=== PATIENT | male | born 1985 | race African-American/Black ===

== ENCOUNTER 2020-03-16 16:07 | Outpatient (REF) | payer OTHER, SELFPAY | END 2020-03-16 16:08 | disposition home or self-care (01) | LOC: HO.LAB 16:07 | PROVIDERS: Visit Provider Internal Medicine | DX: Z20.828 Contact with and (suspected) exposure to other viral communicable diseases (principal) | CPT/HCPCS: U0003 ==

== ENCOUNTER 2020-04-03 08:44 | Outpatient (REF) | payer OTHER, SELFPAY | END 2020-04-03 08:45 | disposition home or self-care (01) | LOC: HO.LAB 08:44 | PROVIDERS: Visit Provider Internal Medicine | DX: Z20.828 Contact with and (suspected) exposure to other viral communicable diseases (principal) | CPT/HCPCS: C9803; U0003 ==

== ENCOUNTER 2020-06-29 07:56 | Outpatient (REF) | payer OTHER, SELFPAY ==
[2020-06-29 10:24] LABS: MANUAL DIFF FLAG NO
[2020-06-29 10:39] LABS: Basophils Percent Auto 0.7 % (0-2); Eosinophils Absolute Auto 0.2 X10*3/uL (0.0-0.4); Eosinophils Percent Auto 3.8 % (0-4); Hemoglobin 14.5 g/dl (14.0-18.0); Imm Gran Abs Auto 0.04 X10*3/uL (0.00-0.03); Imm Gran Pct Auto 0.7 % (0.0-0.4); Lymphocytes Absolute Auto 2.4 X10*3/uL (1.2-4.9); Lymphocytes Percent Auto 39.6 % (20-40); Mean Corpuscular HGB Conc 31.5 g/dl (31.0-36.0); Mean Corpuscular Hemoglobin 28.5 pg (27.0-33.0); Mean Corpuscular Volume 90.6 fL (80-98); Monocytes Absolute Auto 0.7 X10*3/uL (0.1-1.2); Neutrophils Absolute Auto 2.7 X10*3/uL (2.0-8.3); Neutrophils Percent Auto 44.2 % (45-73); Platelet Count 193 X10*3/uL (160-400); Red Blood Count 5.08 X10*6/uL (4.60-5.80); Red Cell Distribution Width 12.8 % (11.0-16.0); White Blood Count 6.1 X10*3/uL (4.8-10.8)
[2020-06-29 10:41] LABS: Glucose Urine UA NEG (NEG); Leukocyte Esterase Urine NEG (NEG); Nitrite Urine NEG (NEG); PH 6.5 (5.0-8.0); Specific Gravity - Urine 1.025 (1.005-1.025); Urine Blood NEG (NEG); Urine Ketones NEG (NEG); Urine Protein NEG (NEG-TRACE)
[2020-06-29 10:45] LABS: Appearance Urine CLEAR; Color Urine YELLOW
[2020-06-29 11:16] LABS: Alanine Aminotransferase 29 U/L (0-40); Albumin Level 4.2 g/dL (3.5-5.0); Alkaline Phosphatase 65 U/L (39-117); Anion Gap 16 (12-20); Aspartate Amino Transferase 17 U/L (5-37); Bilirubin Total 0.8 mg/dL (0.0-1.0); Blood Urea Nitrogen 22 mg/dL (9-16); Calcium 9.3 mg/dL (8.4-10.2); Carbon Dioxide 27 mmol/L (22-29); Chloride 104 mmol/L (96-108); Cholesterol 185 mg/dL; Estimated Glomerular Filt Rate > 60; Glucose Fasting 107 mg/dL (60-99); HDL Cholesterol 46 mg/dL; LDL Cholesterol Calculated 127 mg/dl; Potassium 5.4 mmol/L (3.3-5.1); Sodium 142 mmol/L (135-145); Triglycerides 61 mg/dL
[2020-06-29 11:27] LABS: HIV AB/AG Nonreactive (Nonreactive); HIV Num 1 0.09 S/CO (0.00-0.99)
[2020-06-29 11:56] LABS: Syphilis Screen Nonreactive (Nonreactive)
[2020-07-01 14:07] LABS: C. trachomatis RNA TMA NOT DETECTED (NOT DETECTED); N. gonorrhoeae RNA TMA NOT DETECTED (NOT DETECTED)
== END 2020-06-29 07:57 | disposition home or self-care (01) ==
LOC: HO.10HDL 07:56
PROVIDERS: Visit Provider Internal Medicine
DX: Z13.89 Encounter for screening for other disorder (principal)
CPT/HCPCS: 36415; 80053; 80061; 81003; 85025; 86780; 87389; 87491; 87591

== ENCOUNTER 2020-09-10 10:29 | Outpatient (REF) | payer OTHER, SELFPAY ==
[2020-09-10 11:06] LABS: COVID-19 Test Negative (Negative); IDNOW Serial# 55D5AD1C
== END 2020-09-10 10:30 | disposition home or self-care (01) ==
LOC: HO.LAB 10:29
PROVIDERS: Visit Provider Internal Medicine
DX: Z20.822 Contact with and (suspected) exposure to COVID-19 (principal)
CPT/HCPCS: 36415; 87635; C9803

== ENCOUNTER 2020-09-13 07:31 | Outpatient (REF) | payer OTHER, SELFPAY ==
[2020-09-13 08:17] LABS: COVID-19 Test Negative (Negative)
== END 2020-09-13 07:32 | disposition home or self-care (01) ==
LOC: HO.LAB 07:31
PROVIDERS: Visit Provider Internal Medicine
DX: Z20.822 Contact with and (suspected) exposure to COVID-19 (principal)
CPT/HCPCS: 36415; 87635; C9803

== ENCOUNTER 2020-09-17 07:57 | Outpatient (REF) | payer OTHER, SELFPAY ==
[2020-09-17 08:15] LABS: COVID-19 Test Negative (Negative)
== END 2020-09-17 07:58 | disposition home or self-care (01) ==
LOC: HO.LAB 07:57
PROVIDERS: Visit Provider Internal Medicine
DX: Z20.822 Contact with and (suspected) exposure to COVID-19 (principal)
CPT/HCPCS: 36415; 87635; C9803

== ENCOUNTER 2021-09-03 06:06 | Outpatient (REF) | payer OTHER, SELFPAY ==
[2021-09-03 07:55] LABS: Estimated Average Glucose 105 mg/dL; Hemoglobin A1c % 5.3 %
[2021-09-03 07:59] LABS: Alanine Aminotransferase 34 U/L (0-40); Albumin Level 4.3 g/dL (3.5-5.0); Alkaline Phosphatase 66 U/L (39-117); Anion Gap 14 (12-20); Aspartate Amino Transferase 23 U/L (5-37); Bilirubin Total 1.1 mg/dL (0.0-1.0); Blood Urea Nitrogen 19 mg/dL (9-16); C Reactive Protein 0.74 mg/dL (< or = 0.50); Calcium 9.9 mg/dL (8.4-10.2); Carbon Dioxide 28 mmol/L (22-29); Chloride 102 mmol/L (96-108); Cholesterol 209 mg/dL; Estimated Glomerular Filt Rate > 60; Glucose Fasting 96 mg/dL (60-99); HDL Cholesterol 45 mg/dL; LDL Cholesterol Calculated 137 mg/dl; Potassium 4.9 mmol/L (3.3-5.1); Sodium 139 mmol/L (135-145); Total Protein 7.3 g/dL (6.5-8.0); Triglycerides 138 mg/dL
[2021-09-03 08:24] LABS: Free T4 (Free Thyroxine) 0.92 ng/dL (0.71-1.85); Thyroid Stimulating Hormone 1.09 uIU/mL (0.32-4.0)
== END 2021-09-03 06:07 | disposition home or self-care (01) ==
LOC: HO.LAB 06:06
PROVIDERS: PCP Internal Medicine; Visit Provider Internal Medicine
DX: Z00.00 Encounter for general adult medical examination without abnormal findings (principal); R51.9 Headache, unspecified; R63.5 Abnormal weight gain; R73.03 Prediabetes
CPT/HCPCS: 36415; 80053; 80061; 83036; 84439; 84443; 86140

== ENCOUNTER 2022-09-17 09:37 | Outpatient (REF) | payer OTHER, SELFPAY ==
[2022-09-17 13:39] LABS: MANUAL DIFF FLAG NO
[2022-09-17 13:49] LABS: Basophils Absolute Auto 0.1 X10*3/uL (0.0-0.2); Basophils Percent Auto 0.8 % (0-2); Eosinophils Absolute Auto 0.4 X10*3/uL (0.0-0.4); Eosinophils Percent Auto 4.8 % (0-4); Hematocrit 46.7 % (42.0-52.0); Hemoglobin 15.5 g/dl (14.0-18.0); Imm Gran Abs Auto 0.02 X10*3/uL (0.00-0.03); Imm Gran Pct Auto 0.3 % (0.0-0.4); Lymphocytes Absolute Auto 2.3 X10*3/uL (1.2-4.9); Lymphocytes Percent Auto 31.3 % (20-40); Mean Corpuscular HGB Conc 33.2 g/dl (31.0-36.0); Mean Corpuscular Hemoglobin 29.4 pg (27.0-33.0); Mean Corpuscular Volume 88.4 fL (80.0-98.0); Mean Platelet Volume 12.4 fL (9.4-12.4); Monocytes Absolute Auto 0.9 X10*3/uL (0.1-1.2); Monocytes Percent Auto 12.9 % (2-11); Neutrophils Absolute Auto 3.6 x10*3/uL (2.0-8.3); Neutrophils Percent Auto 49.9 % (45-73); Platelet Count 236 X10*3/uL (160-400); Red Blood Count 5.28 X10*6/uL (4.60-5.80); Red Cell Distribution Width 12.8 % (11.0-16.0); White Blood Count 7.2 X10*3/uL (4.8-10.8)
[2022-09-17 14:20] LABS: Alanine Aminotransferase 54 U/L (0-40); Albumin Level 4.4 g/dL (3.5-5.0); Alkaline Phosphatase 71 U/L (39-117); Anion Gap 12 (12-20); Aspartate Amino Transferase 26 U/L (5-37); Bilirubin Total 1.2 mg/dL (0.0-1.0); Blood Urea Nitrogen 13 mg/dL (9-16); Calcium 9.8 mg/dL (8.4-10.2); Carbon Dioxide 30 mmol/L (22-29); Chloride 103 mmol/L (96-108); Cholesterol 211 mg/dL; Estimated Glomerular Filt Rate > 60; Glucose Fasting 90 mg/dL (60-99); HDL Cholesterol 46 mg/dL; LDL Cholesterol Calculated 149 mg/dl; Potassium 5.4 mmol/L (3.3-5.1); Sodium 140 mmol/L (135-145); Total Protein 7.1 g/dL (6.5-8.0); Triglycerides 84 mg/dL
[2022-09-17 14:37] LABS: Thyroid Stimulating Hormone 0.77 uIU/mL (0.32-4.0)
== END 2022-09-17 09:38 | disposition home or self-care (01) ==
LOC: HO.10HDL 09:37
PROVIDERS: Visit Provider Internal Medicine
DX: Z00.00 Encounter for general adult medical examination without abnormal findings (principal); E66.9 Obesity, unspecified
CPT/HCPCS: 36415; 80053; 80061; 84443; 85025

== ENCOUNTER → 2023-01-14 07:48 | Outpatient (BNVA) | payer OTHER, SELFPAY | PROVIDERS: PCP Internal Medicine; Visit Provider Physician Assistant Surgical ==

== ENCOUNTER 2023-02-02 08:46 | Outpatient (AMB) | payer OTHER, SELFPAY ==
--- NOTE | 2023-02-02 14:19 | A.OFFVIS_ITS ---
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 HPI Details Start time: 2.15pm, End time: 2.48pm ?I spent 28 minutes speaking with the patient on the phone plus an additional 5 minutes reviewing and updating records for a total of 33 minutes HPI Comments History of Present Illness Details Previous weight loss efforts: intermittent fasting, low car diet, exercise, calorie counting Wakes up: 4.30am, Sleeps: 9pm Breakfast: skips Lunch: 12pm (kazakh food, pizza, chicken with vegetables) Dinner: 6.30pm (rice, vegetables, chicken) Snacks: cereal at 8pm Exercise: walking outside Fluids: Coffee: none, tea: none, soda: none, juice: 1-2 glasses per day (orange or cranberry), ETOH: 1-2/year [facility] Medical History (Updated 02/02/23 @ 14:21 by Simone Oliver MD) Morbid obesity Surgical History (Updated 02/02/23 @ 08:28 by Caitlin Mora CMA) History of eye surgery Hx of appendectomy Family History (Updated 02/02/23 @ 08:29 by Caitlin Mora CMA) Mother Hypertension Father Hypertension Son No problems noted. Son Asthma Daughter Asthma Social History (Updated 02/02/23 @ 08:27 by Caitlin Mora CMA) Alcohol intake: current Alcohol intake frequency: other Patient Tobacco Use Status: Never used Tobacco Assessment & Plan Assessment & Plan (1) Morbid obesity: Code(s): E66.01 - Morbid (severe) obesity due to excess calories Plan: 1.? Plan for lap sleeve gastrectomy. If diaphragmatic or ventral hernias are present at time of surgery, these will be repaired laparoscopically as well. Risks and complications were discussed in detail including possible conversion to an open procedure, anastomotic leak, bleeding requiring transfusion, small bowel obstruction, , DVT and pulmonary embolism, cardiac, or pulmonary complications, as mcc complications such as anastomotic ulcer, insufficient weight loss and vitamin deficiencies. I emphasized the importance of close follow-up, adherence to instructions and good communication. 2. Nutritional counseling. Start with 2 Isopure protein (buy at [employer] or [employer]) shakes (ONE scoop in 8oz water each) at 5am-7am and 9am-11am, 2 protein bar (Zone Perfect protein bars, buy at [employer] ?[employer], [employer], or [employer]) at 12pm-2pm and 3pm-5pm, dinner at 6pm (12 forks of protein and 12 forks of salad/vegetables). If hungry, please do another HALF Zone Perfect bar at 8pm- 9pm. Meal to include lean meat (beef, fish, pork, turkey, chicken), or kazakh yogurt, or egg whites, or beans with a salad with olive oil and fruits (berries, pears, apples, kiwi). Avoid salt, breads, potatoes, rice, pasta, desserts. 3. Each shake would be drunk slowly, like coffee in a period of 2 hours. 4. Cut each bar in 4 pieces and eat each piece in 30min ?to make each bar last 2 hours. 5. I emphasized the importance of measuring accurately the food portion and measure it when serving the food in plate 6. The meal portions include 12 full-size forks of meat and 12 full-size forks of salad. You always eat the meat portion but you can replace up to 6 forks for salad/vegetables with rice, potatoes or pasta, or a fruit ?if you like. The less you do it the better weight loss will be. 7. One full-size fork is what it can be scooped on the fork without falling aside and not what can be bit with the fork. Use regular forks like those you find in a typical restaurant. 8.? Please send me weight measurements as soon as possible and then once a week. Always include your diet and exercise plan. 9. Start walking outside daily, tracking calories with a goal of 300 calories per day, daily. Goal is to burn 2000 calories per week on exercise, which means either 300 calories daily, or 400 calories 5 days per week, or 500 calories 4 days per week, or 650 calories 3 days per week. 10. Alternatively purchase a stationary bike, elliptical or treadmill at home that can track calories. Let me know if you do so I can give you an exercise plan. 11.?Goal is to lose at least 1.5-2lbs per week 12. Goal to lose 10% of your weight before surgery, which is about 32lbs. Ultimate weight goal: 292lbs before surgery 13. Please follow the diet plan exactly without any change. If you don't like something about the plan or you feel hungry you need to communicate with me so I can help you revise the plan. You should not change the plan yourself. Orders: Orders IRON PROFILE Today E66.01 - Morbid (severe) obesity due to excess calories Comprehensive Met. Panel Today E66.01 - Morbid (severe) obesity due to excess calories Vitamin B1 Today E66.01 - Morbid (severe) obesity due to excess calories Vitamin A Today E66.01 - Morbid (severe) obesity due to excess calories C Reactive Protein Today E66.01 - Morbid (severe) obesity due to excess calories Ferritin Today E66.01 - Morbid (severe) obesity due to excess calories US abdomen comp w elastography Today E66.01 - Morbid (severe) obesity due to excess calories XR chest 2V Today E66.01 - Morbid (severe) obesity due to excess calories ECG 12 lead EKG Today E66.01 - Morbid (severe) obesity due to excess calories Insulin Today E66.01 - Morbid (severe) obesity due to excess calories Lipid Panel Today E66.01 - Morbid (severe) obesity due to excess calories Complete Blood Count Auto Diff Today E66.01 - Morbid (severe) obesity due to excess calories Vitamin B12 and Folate Today E66.01 - Morbid (severe) obesity due to excess calories Zinc Today E66.01 - Morbid (severe) obesity due to excess calories PTHI Today E66.01 - Morbid (severe) obesity due to excess calories TSH reflex Free T4 Today E66.01 - Morbid (severe) obesity due to excess calories H Pylori Breath Test Today E66.01 - Morbid (severe) obesity due to excess calories Vitamin D 25-OH Total Today E66.01 - Morbid (severe) obesity due to excess calories Hemoglobin A1c Today E66.01 - Morbid (severe) obesity due to excess calories FL upper GI w air Today E66.01 - Morbid (severe) obesity due to excess calories Referrals Behavioral Health Referral E66.01 - Morbid (severe) obesity due to excess calories Nutrition/Dietitian Referral E66.01 - Morbid (severe) obesity due to excess calories Telehealth Telehealth Location of provider rendering services: practice address Location of patient: address on file Patient Identification confirmed using: Name, : Yes Telehealth method: voice only Patient verbally consented to treatment: Yes Patient verbally consented to billing insurance company: Yes Patient informed of any privacy concerns related to visit: Yes Coding Level of Care Code Tele New Pt Level 3 (92833) Diagnoses Morbid obesity E66.01 Time Spent (min) 33
[2023-02-02 14:26] VITALS: BMI 43.9
== END 2023-02-02 14:49 | disposition home or self-care (01) ==
LOC: HO.HBS 08:46
PROVIDERS: PCP Internal Medicine; Visit Provider Surgery
DX: E66.01 Morbid (severe) obesity due to excess calories (principal); Z68.41 Body mass index [BMI] 40.0-44.9, adult
CPT/HCPCS: 99204

== ENCOUNTER → 2023-02-02 08:46 | Outpatient (BNVA) | payer OTHER, SELFPAY | PROVIDERS: PCP Internal Medicine; Visit Provider Surgery ==

== ENCOUNTER 2023-02-11 07:18 | Outpatient (REF) | payer OTHER, SELFPAY ==
--- NOTE | ~2023-02-11 | XR_ITS ---
EXAMINATION: XR CHEST CLINICAL INFORMATION: Morbid obesity COMPARISON: None available. TECHNIQUE: 2 views of the chest were obtained. FINDINGS: No significant abnormality is noted involving the heart, lungs, mediastinum, bony thorax or soft tissues. XR/XR chest 2V IMPRESSION: Unremarkable examination.
[2023-02-11 07:39] LABS: MANUAL DIFF FLAG NO
--- NOTE | 2023-02-11 07:43 | ECG_ITS ---
Test Reason : e66.01 Blood Pressure : / mmHG Vent. Rate : 064 BPM Atrial Rate : 064 BPM P-R Int : 190 ms QRS Dur : 094 ms QT Int : 394 ms P-R-T Axes : 033 060 -04 degrees QTc Int : 406 ms Normal sinus rhythm Abnormal QRS-T angle, consider primary T wave abnormality Abnormal ECG No previous ECGs available Referred By: Simone Oliver Electronically Signed By:ROSE SPENCER
[2023-02-11 08:48] LABS: Basophils Absolute Auto 0.1 X10*3/uL (0.0-0.2); Basophils Percent Auto 0.6 % (0-2); Eosinophils Absolute Auto 0.5 X10*3/uL (0.0-0.4); Hematocrit 45.8 % (42.0-52.0); Hemoglobin 15.2 g/dl (14.0-18.0); Imm Gran Abs Auto 0.03 X10*3/uL (0.00-0.03); Imm Gran Pct Auto 0.4 % (0.0-0.4); Lymphocytes Absolute Auto 2.7 X10*3/uL (1.2-4.9); Lymphocytes Percent Auto 33.8 % (20-40); Mean Corpuscular HGB Conc 33.2 g/dl (31.0-36.0); Mean Corpuscular Hemoglobin 28.7 pg (27.0-33.0); Mean Corpuscular Volume 86.4 fL (80.0-98.0); Monocytes Percent Auto 12.8 % (2-11); Neutrophils Absolute Auto 3.8 x10*3/uL (2.0-8.3); Neutrophils Percent Auto 46.4 % (45-73); Platelet Count 217 X10*3/uL (160-400); Red Cell Distribution Width 13.1 % (11.0-16.0); White Blood Count 8.1 X10*3/uL (4.8-10.8)
[2023-02-11 09:21] LABS: Alanine Aminotransferase 68 U/L (0-40); Albumin Level 4.4 g/dL (3.5-5.0); Alkaline Phosphatase 68 U/L (39-117); Anion Gap 15 (12-20); Aspartate Amino Transferase 39 U/L (5-37); Bilirubin Total 0.9 mg/dL (0.0-1.0); Blood Urea Nitrogen 18 mg/dL (9-16); Calcium 9.6 mg/dL (8.4-10.2); Carbon Dioxide 28 mmol/L (22-29); Chloride 102 mmol/L (96-108); Cholesterol 183 mg/dL (<200); Estimated Glomerular Filt Rate > 60; Glucose Random 105 mg/dL (60-115); HDL Cholesterol 37 mg/dL (>40); Iron 60 mcg/dL (45-160); LDL Cholesterol Calculated 130 mg/dL (<100); Percent Iron Saturation 27 % (15-50); Potassium 3.9 mmol/L (3.3-5.1); Sodium 141 mmol/L (135-145); Total Iron Binding Capacity 220 mcg/dL (228-428); Total Protein 7.5 g/dL (6.5-8.0); Triglycerides 83 mg/dL (<150); Unsaturated Iron Binding 160 ug/dL
[2023-02-11 09:37] LABS: Ferritin 168 ng/mL (20-250); Insulin 11 uU/mL (2-29); TSH reflex Free T4 0.54 uIU/mL (0.32-4.0); Vitamin D 25-OH Total 22.1 ng/mL (>30)
[2023-02-11 09:45] LABS: Folate 11.9 ng/mL (> or = 4.0); Vitamin B12 962 pg/mL (200-900)
[2023-02-11 12:00] LABS: Estimated Average Glucose 103 mg/dL; Hemoglobin A1c % 5.2 % (<6.0)
[2023-02-12 14:35] LABS: H Pylori Breath Test Positive (Negative)
[2023-02-12 16:19] LABS: Calcium (PTHI) 9.5 mg/dL (8.6-10.3); PTHI 54 pg/mL (16-77)
[2023-02-14 22:48] LABS: Zinc 77 mcg/dL (60-130)
[2023-02-15 14:54] LABS: Vitamin B1 11 nmol/L (8-30)
[2023-02-17 04:58] LABS: Vitamin A 39 mcg/dL (38-98)
== END 2023-02-11 07:19 | disposition home or self-care (01) ==
LOC: HO.XRAY 07:18
PROVIDERS: PCP Internal Medicine; Visit Provider Surgery
DX: E66.01 Morbid (severe) obesity due to excess calories (principal)
CPT/HCPCS: 71046; 80053; 80061; 82306; 82607; 82728; 82746; 83013; 83036; 83525; 83540; 83970; 84425; 84443; 84590; 84630; 85025; 86140; 93005

== ENCOUNTER 2023-03-02 08:02 | Outpatient (AMB) | payer OTHER, SELFPAY ==
--- NOTE | 2023-03-02 10:41 | MHC.OFFVISWM ---
Intake VS Expanded 03/02/23 14:14 Height 6 ft Weight 318 lb 1 oz BMI 43.1 Body Fat % 45 Body Fat Mass 143.1 Fat Free Mass 175 Visceral Fat Rating 24 Body Water % 39.6 Body Water Mass 125.9 Basal Metabolic Rate/Score 2,500 Intake Visit Reasons: TV Follow Up SWL - 1ST Allergies Penicillins Allergy (Mild, Verified 02/02/23 14:19) Rash HPI TV Follow Up SWL - 1ST HPI Details Start time: 10.00am, End time: 11am ?I spent 25 minutes speaking with the patient on the phone plus an additional 5 minutes reviewing and updating records for a total of 30 minutes HPI Comments History of Present Illness Details Overall weight loss: 5.9lbs, or 1.82% TBWL Is doing two Isopure protein shakes (1 scoop each in water), 2 Zone Perfect protein bars and one meal (12 forks of protein and 12 forks of salad or vegetables) Exercise: Elliptical for 700 calories or treadmill for 900 calories PFSH Medical History (Updated 02/20/23 @ 20:21 by Simone Oliver MD) Morbid obesity Surgical History (Updated 02/02/23 @ 08:28 by Caitlin Mora CMA) History of eye surgery Hx of appendectomy Family History (Updated 02/02/23 @ 08:29 by Caitlin Mora CMA) Mother Hypertension Father Hypertension Son No problems noted. Son Asthma Daughter Asthma Social History (Updated 02/02/23 @ 08:27 by Caitlin Mora CMA) Alcohol intake: current Alcohol intake frequency: other Patient Tobacco Use Status: Never used Tobacco Assessment & Plan Assessment & Plan (1) Morbid obesity: Code(s): E66.01 - Morbid (severe) obesity due to excess calories Plan: 1. Continue same nutritional plan of two Isopure protein shakes (1 scoop each in water), 2 Zone Perfect protein bars and one meal (12 forks of protein and 12 forks of salad or vegetables) 2. Exercise: start treadmill with an incline of 2.0 and speed of 3.5. Increase incline by 1 every 3 min to a max incline of 8.0, stay 3min at 8.0 and then return to 2.0 and repeat same steps until calorie goal is met. Goal is to burn 2000 calories per week on exercise, which means either 300 calories daily, or 400 calories 5 days per week, or 500 calories 4 days per week, or 650 calories 3 days per week. 3. Continue to send me weight measurements weekly on Tuesdays Telehealth Telehealth Location of provider rendering services: practice address Location of patient: address on file Patient Identification confirmed using: Name, : Yes Telehealth method: voice only Patient verbally consented to treatment: Yes Patient verbally consented to billing insurance company: Yes Patient informed of any privacy concerns related to visit: Yes Minutes spent on Phone/Video with Pt.: 30 Coding Level of Care Code Tele Est Pt Level 4 (00714) Diagnoses Morbid obesity E66.01 Time Spent (min) 30
[2023-03-02 14:14] VITALS: BMI 43.1
== END 2023-03-02 14:21 | disposition home or self-care (01) ==
LOC: HO.HBS 08:02
PROVIDERS: PCP Internal Medicine; Visit Provider Surgery
DX: E66.01 Morbid (severe) obesity due to excess calories (principal); Z68.41 Body mass index [BMI] 40.0-44.9, adult
CPT/HCPCS: 99214

== ENCOUNTER → 2023-03-02 08:02 | Outpatient (BNVA) | payer OTHER, SELFPAY | PROVIDERS: PCP Internal Medicine; Visit Provider Surgery ==

== ENCOUNTER 2023-03-03 13:11 | Outpatient (AMB) | payer OTHER, SELFPAY ==
--- NOTE | 2023-03-03 12:38 | A.OFFWM_ITS ---
Intake Intake Visit Reasons: VIDEO BH Intake Allergies Penicillins Allergy (Mild, Verified 02/02/23 14:19) Rash [facility] Medical History (Updated 03/03/23 @ 12:59 by Fátima Ching) Morbid obesity Surgical History (Updated 02/02/23 @ 08:28 by Caitlin Mora CMA) History of eye surgery Hx of appendectomy Family History (Updated 02/02/23 @ 08:29 by Caitlin Mora CMA) Mother Hypertension Father Hypertension Son No problems noted. Son Asthma Daughter Asthma Social History (Updated 02/02/23 @ 08:27 by Caitlin Mora CMA) Alcohol intake: current Alcohol intake frequency: other Patient Tobacco Use Status: Never used Tobacco Behavioral Health Assessment Weight Management Therapy Therapy Notes Details Pt is looking to have weight loss surgery to help improve his health and quality of life. He reported past outpatient therapy when he was in the and also through his job [employer] due to . He denied any history of problems with drugs or alcohol, or previous inpatient psychiatric admissions. Presenting Concerns Referral Source provider Reason for referral weight loss surgery evaluation Precipitating Event obesity Living Situation Current Living Situation Own At risk of losing current housing? No Satisfied with current living situation? Yes Comments Patient lives with his and three children ages 21, 15, and 12, and his father in law. Food/Weight/Diet Expectations of change weight loss and maintenance History/Relationship with food He reported that he would cope with stress by eating food. Over the last few years he has worked on improving that. He realized after the he was using food to cope and started to learn from that. Pt stated that he would snack and munch at night, eat cereal, drink juice, large amounts, hot pockets, chips, left over pizza at night. He would skip meals during the day and then over eat at night. 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 In the last 13 years he has struggled with his weight. History/Relationship with dieting IF, low carb, calorie counting Binge Eating Do you frequently eat large amounts of food in short periods of time, not feeling physically hungry? Yes Do you feel out of control when you eat a large amount of food in a short period of time? No Do you eat large amounts of food rapidly and typically alone? Yes Night Eating Do you wake up at least once during the night to eat? No If you wake up in the night, do you find that it is necessary to eat something in order to fall back asleep? No Do you have little or no appetite in the morning and feel very hungry in the evening, often overeating between dinner and when you go to bed? 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 His is source of support. Cultural/Ethnic information Legal Involvement and History Current or historical involvement with the legal system? none Education Highest grade completed college Preferred learning style Auditory, Verbal, Written, Learn by doing and Visual Currently enrolled in educational program? No Interested in further educational program? 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 No Financial Situation Describe current financial situation Comfortable Financial assistance? None Service Service? Yes Mental Health and Addiction Treatment Current/Past substance abuse? No Current/Past addictive behavior concerns? No Medical and Physical Health Summary Physical exam in the last year? Yes Pain Screening Current pain? No Pain in the last few months? No Medications Is the patient compliant with medications? Yes Does the patient have Guzman Guardian in place? Not applicable Does the patient use complimentary health approaches? No Trauma/Abuse History History of trauma? Yes Questionnaires PHQ-9 Over the last 2 weeks, how often have you been bothered by any of the following problems? 1. Little interest or pleasure in doing things: several days 2. Feeling down, depressed, or hopeless: not at all 3. Trouble falling or staying asleep, or sleeping too much: not at all 4. Feeling tired or having little energy: several days 5. Poor appetite or overeating: more than half the days 6. Feeling bad about yourself - or that you are a failure or have let yourself or your family down: not at all 7. Trouble concentrating on things, such as reading the newspaper or watching television: not at all 8. Moving or speaking so slowly that other people could have noticed. Or the opposite - being so fidgety or restless that you have been moving around a lot more than usual: not at all 9. Thoughts that you would be better off or of hurting yourself in some way: not at all Total score: 4 Depression Screening Interpretation: Negative Depression Screening Done: Yes Source: Developed by Drs. Rayshawn Kwan, Brenda Proctor, Charles Rodriguez and colleagues, with an educational nicolás from [employer]. Binge Eating Scale Group 1 A. I don't feel self-conscious about my wt. or body size when I'm with others. B. I feel concerned about how I look to others, but it normally does not make me fell disappointed with myself C. I do get self-conscious about my appearance and wt. which makes me feel disappointed in myself. D. I feel very self-conscious about my wt. and frequently I feel intense shame and disgust for myself. I try to avoid social contacts because of my self- consciousness. Response Group 1: B Group 2 A. I don't have any difficulty eating slowly in the proper manner. B. Although I seem to gobble down foods, I don't end up feeling stuffed because of eating to much. C. At times, I tend to eat quickly and then, I feel uncomfortably full afterwards. D. I have the habit of bolting down my food, without really chewing it. When this happens I usually feel uncomfortably stuffed because I've eaten to much. Response Group 2: C Group 3 A. I feel capable to control my eating urges when I want to. B. I feel like I have failed to control my eating more than the average person. C. I feel utterly helpless when it comes to feeling in control of my eating urges. D. Because I feel so helpless about controlling my eating I have become very desperate about trying to get control. Response Group 3: B Group 4 A. I don't have the habit of eating when I'm bored. B. I sometimes eat when I'm bored, but often I'm able to get busy and get my mind off food. C. I have a regular habit of eating when I'm bored, but occasionally, I can use some other activity to get my mind off eating. D. I have a strong habit of eating when I'm bored. Nothing seems to help me breath the habit. Response Group 4: A Group 5 A. I'm usually physically hungry when I eat something. B. Occasionally, I eat something on impulse even though I really am not hungry. C. I have the regular habit of eating foods, that I might not really enjoy, to satisfy a hungry feeling even though physically, I don't need the food. D. Although I'm not physically hungry, I get a hungry feeling in my mouth that only seems to be satisfied when I eat a food, like sandwich, that fills my mo uth. Sometimes, when I eat the food to satisfy my mouth hunger, I then spit the food out so I won't gain weight. Response Group 5: B Group 6 A. I don't feel any guilt or self-hate after I overeat. B. After I overeat, occasionally I feel guilt or self-hate. C. Almost all the time I experience strong guilt or self-hate after I overeat. Response Group 6: B Group 7 A. I don't lose total control of my eating when dieting even after periods when I overeat. B. Sometimes when I eat a forbidden food on a diet, I feel like I blew it and eat even more. C. Frequently, I have the habit of saying to myself, I've blown it now, why not go all the way, when I overeat on a diet. When that happens I eat more. D. I have a regular habit of starting a strict diets for myself but I break the diets by going on an eating binge. My life seems to be either a feast or famine. Response Group 7: A Group 8 A. I rarely eat so much food that I feel uncomfortably stuffed afterwards. B. Usually about once a month, I each such a quantity of food, I end up feeling very stuffed. C. I have regular periods during the month when I eat large amounts of food, either at mealtime or at snacks. D. I eat so much food that I regularly feel quite uncomfortable after eating and sometimes a bit nauseous. Response Group 8: B Group 9 A. My level of calorie intake does not go up very high or go down very low on a regular basis. B. Sometimes after I overeat, I will try to reduce my caloric intake to almost nothing to compensate for the excess calories I've eaten. C. I have a regular habit of overeating during the night. It seems that my routine is not to be hungry in the morning but overeat in the evening. D. In my adult years, I have had week-long periods where I practically starve myself. This follows periods when I overeat. It seems I live a life of either feast or famine. Response Group 9: C Group 10 A. I usually am able to stop eating when I want to. I know when enough is enough. B. Every so often, I experience a compulsion to eat which I can't seem to control. C. Frequently, I experience strong urges to eat which I seem unable to control, but at other times I can control my eating urges. D. I feel incapable of controlling urges to eat. I have a fear of not being able to stop eating voluntarily. Response Group 10: B Group 11 A. I don't have any problem stopping eating when I feel full. B. I usually can stop eating when I feel full but occasionally overeat leaving me feeling uncomfortably stuffed. C. I have a problem stopping eating once I start and usually I feel uncomfortably stuffed after I eat a meal. D. Because I have a problem not being able to stop eating when I want, I sometimes have to induce vomiting to relieve my stuffed feeling. Response Group 11: B Group 12 A. I seem to eat just as much when I'm with others, Family social gatherings as when I'm by myself. B. Sometimes, when I'm with other persons, I don't eat as much as I want to eat because I'm self-conscious about my eating. C. Frequently, I eat only a small amount of food when others are present, because I'm very embarrassed about my eating. D. I feel so ashamed about overeating that I pick times to overeat when I know no one will see me. I feel like a closet eater. Response Group 12: B Group 13 A. I eat three meals a day with only an occasional between meal snack. B. I eat 3 meals a day, but I also normally snack between meals. C. When I am snacking heavily, I get in the habit of skipping regular meals. D. There are regular periods when I seem to be continually eating, with no planned meals. Response Group 13: C Group 14 A. I don't think much about trying to control unwanted eating urges. B. At least some of the time, I feel my thoughts are pre-occupied with trying to control my eating urges. C. I feel that frequently I spend much time thinking about how much I ate or about trying not to eat anymore. D. It seems to me that most of my waking hours are pre-occupied by thoughts about eating or not eating. I feel like I'm constantly struggling not to eat. Response Group 14: B Group 15 A. I don't think about food a great deal. B. I have strong craving for food but they last only for brief periods of time. C. I have days when I can't seem to think about anything else but food. D. Most of my days seem to be pre-occupied with thoughts about food. I feel like I live to eat. Response Group 15: A Group 16 A. I usually know whether or not I'm physically hungry. I take the right portion of food to satisfy me. B. Occasionally, I feel uncertain about knowing whether or not I'm physically hungry. A these times it's hard to know how much food I should take to satisfy me. C. Even though I might know how many calories I should eat, I don't have any idea what is a normal amount of food for me. Response Group 16: B Binge Eating Score: 16 Score less than 17 Minimal Risk Score between 18-26 Moderate Risk Score between 27-46 High Risk Assessment & Plan Assessment & Plan (1) Binge-eating disorder, in partial remission, mild: Code(s): F50.81 - Binge eating disorder (2) Morbid obesity: Code(s): E66.01 - Morbid (severe) obesity due to excess calories Plan Patient reported doing well. 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 He is cleared for surgery. Telehealth Telehealth Location of provider rendering services: other Location of patient: other Patient Identification confirmed using: Name, : Yes Telehealth method: voice only Patient verbally consented to treatment: Yes Patient verbally consented to billing insurance company: Yes Patient informed of any privacy concerns related to visit: Yes Minutes spent on Phone/Video with Pt.: 45 Coding Level of Care Code Tele Psy Diag Eval (44111) Diagnoses Binge-eating disorder, in partial remission, mild F50.81 Morbid obesity E66.01 Time Spent (min) 45
== END 2023-03-03 16:11 | disposition home or self-care (01) ==
LOC: HO.HBST 13:11
PROVIDERS: PCP Internal Medicine; Visit Provider Counselor Mental Health
DX: F50.81 Binge eating disorder (principal); E66.01 Morbid (severe) obesity due to excess calories; Z68.41 Body mass index [BMI] 40.0-44.9, adult
CPT/HCPCS: 90791

== ENCOUNTER → 2023-03-03 13:11 | Outpatient (BNVA) | payer OTHER, SELFPAY | PROVIDERS: PCP Internal Medicine; Visit Provider Counselor Mental Health | DX: F50.81 Binge eating disorder (principal); E66.01 Morbid (severe) obesity due to excess calories ==

== ENCOUNTER → 2023-03-04 13:49 | Outpatient (BNVA) | payer OTHER, SELFPAY | PROVIDERS: PCP Internal Medicine; Visit Provider Dietitian, Registered | DX: E66.9 Obesity, unspecified (principal); Z68.41 Body mass index [BMI] 40.0-44.9, adult; Z71.3 Dietary counseling and surveillance | CPT/HCPCS: 97802 ==

== ENCOUNTER → 2023-03-09 07:57 | Outpatient (REF) | payer OTHER, SELFPAY ==
--- NOTE | 2023-03-09 07:59 | CA_ITS ---
Acquisition Time: 2023-03-09 08:08:34 Total Exercise Time: 00:09:30 Test Indications: Abnormal ECG Medications: VIT D Protocol: KIAH Max HR: 193 BPM 104% of Pred: 184 BPM Max BP: 202/070 mmHG Max Work Load: 10.7 METS Exercise stress test exercise 9 min 30 sec of Kiah protocol 103% MPHR and 10.7 METs, without anginal symptoms, without arrhythmias, with normotensive response to exercise, without EKG changes. Test reviewed with Dr. Rocha Referred By: Simone Oliver Overread By: Mikayla Butler
== END ==
LOC: HO.CARD 07:57
PROVIDERS: PCP Internal Medicine; Visit Provider Surgery
DX: R94.31 Abnormal electrocardiogram [ECG] [EKG] (principal)
CPT/HCPCS: 93017

== ENCOUNTER → 2023-03-09 07:59 | Outpatient (BNV) | payer OTHER, SELFPAY | PROVIDERS: PCP Internal Medicine; Visit Provider Nurse Practitioner | DX: R94.31 Abnormal electrocardiogram [ECG] [EKG] (principal) | CPT/HCPCS: 93016; 93018 ==

== ENCOUNTER 2023-03-10 08:22 | Outpatient (REF) | payer OTHER, SELFPAY ==
--- NOTE | ~2023-03-10 | US_ITS ---
EXAMINATION: US COMPLETE ABDOMEN WITH LIVER ELASTOGRAPHY CLINICAL INFORMATION: Obesity. COMPARISON: None available. TECHNIQUE: Real-time imaging of the abdominal viscera. Noninvasive ultrasound liver fibrosis assessment is performed using Jarred ElastPQ point quantification shear wave elastography (2D-SWE) with a C5-2 MHz transducer. Multiple elastography samples are obtained. FINDINGS: PANCREAS: Normal. The visualized pancreatic head and body are normal in appearance. The remainder of the pancreas is obscured from visualization by the overlying bowel gas. ABDOMINAL AORTA: The proximal, middle, and distal aortic segments are normal in caliber. INFERIOR VENA CAVA: Visualized portions are normal. LIVER: The liver demonstrates normal size, contour and increased echogenicity. No focal lesion or intrahepatic biliary duct dilatation. The right lobe measures 15.9 cm in length. The left lobe measures 8.8 cm in length. Portal flow is towards the liver (hepatopetal). Shear wave liver elastography median stiffness is 1.40 m/s (reference: normal median stiffness is 1.3 m/s or less). IQR/median stiffness to assess sampling precision is 0.24 (reference: good quality data set is IQR/median stiffness of 0.15 or less). GALLBLADDER: There are markedly gallstones, with a [id number]-[id number]-[id number] complex. There is no gallbladder wall thickening or pericholecystic fluid. COMMON BILE DUCT: Normal in caliber measuring 0.5 cm in diameter. RIGHT KIDNEY: Normal. No hydronephrosis. No renal calculi or focal parenchymal lesions. The kidney measures 11.1 cm in maximum dimension. LEFT KIDNEY: Normal. No hydronephrosis. No renal calculi or focal parenchymal lesions. The kidney measures 12.1 cm in maximum dimension. SPLEEN: Normal. The spleen measures 12.0 cm in maximum dimension. FREE FLUID: None. US/US abdomen comp w elastography IMPRESSION: 1. There is generalized increase in hepatic echotexture, consistent with fatty infiltration or hepatocellular disease. Please correlate clinically. No focal hepatic mass or intrahepatic biliary dilatation is seen. 2. Liver elastography: Although measurements appear to rule out compensated advanced chronic liver disease, there is statistical variability of the sampling which decreases accuracy. 3. There is marked cholelithiasis, without cholecystitis or choledocholithiasis seen REFERENCE: Society of Radiologists in Ultrasound Liver Stiffness Thresholds (2020): LIVER STIFFNESS THRESHOLDS: *Liver Stiffness equal or less than 1.3 m/s: High probability of being normal. *Liver Stiffness less than 1.7 m/s: In the absence of other known clinical signs, rules out compensated advanced chronic liver disease. *Liver Stiffness 1.7-2.1 m/s: Suggestive of compensated advanced chronic liver disease but need further test for confirmation. *Liver Stiffness over 2.1 m/s: Rules in compensated advanced chronic liver disease. *Liver Stiffness over 2.4 m/s: Suggestive of clinically significant portal hypertension. QUALITY OF DATA SET: *IQR/Median value equal or less than 0.15 implies a quality data set. *IQR/Median value over 0.15 implies a poor quality data set. SIGNIFICANT CHANGE FROM PRIOR EXAM: Significant change if liver stiffness measurement is 10% or greater from prior exam. OTHER CONSIDERATIONS: The stage of liver fibrosis may be overestimated in the setting of acute hepatitis, liver inflammation, elevated liver function tests, hepatic vascular congestion, obstructive cholestasis, non-fasting state, and infiltrative diseases such as amyloidosis and lymphoma. In some patients with NAFLD, the liver stiffness thresholds for compensated advanced chronic liver disease may be lower. In causes other than viral hepatitis and NAFLD, liver stiffness thresholds are not well established.
== END 2023-03-10 08:23 | disposition home or self-care (01) ==
LOC: HO.US 08:22
PROVIDERS: PCP Internal Medicine; Visit Provider Surgery
DX: E66.01 Morbid (severe) obesity due to excess calories (principal)
CPT/HCPCS: 76705; 76981

== ENCOUNTER 2023-03-26 08:16 | Outpatient (REF) | payer OTHER, SELFPAY ==
[2023-03-27 14:36] LABS: H Pylori Breath Test Negative (Negative)
== END 2023-03-26 08:17 | disposition home or self-care (01) ==
LOC: HO.LNP 08:16
PROVIDERS: PCP Internal Medicine; Visit Provider Surgery
DX: A04.8 Other specified bacterial intestinal infections (principal)
CPT/HCPCS: 83013; 99211

== ENCOUNTER 2023-04-21 09:15 | Outpatient (REF) | payer OTHER, SELFPAY ==
--- NOTE | ~2023-04-21 | FL_ITS ---
EXAMINATION: XR FLUOROSCOPY UPPER GI WITH AIR CLINICAL INFORMATION: Preop evaluation prior to bariatric surgery COMPARISON: None TECHNIQUE: Fluoroscopic air contrast upper GI examination was performed utilizing standard techniques with thin and thick barium and effervescent granules. Numerous spot images were obtained. FINDINGS: Dual and single contrast images of the esophagus demonstrate normal caliber, contour, and mucosal pattern. No evidence of stricture, mass, or ulcerations identified. Esophageal peristalsis was normal. Tiny type I hiatal hernia is present. Gastroesophageal reflux up to the thoracic inlet. Dual contrast and single contrast images of the stomach demonstrated normal contour and mucosal pattern without evidence of mass, ulceration, or other abnormality. Contrast freely passed into the gastric antrum and duodenal bulb without delay. Single and air-contrast images of the duodenal bulb demonstrate no abnormality. The duodenal sweep has a normal appearance, course, and mucosal fold appearance. The imaged proximal jejunum has a normal fold pattern and caliber. FLUOROSCOPY TIME: 3.5 minutes Number of Spot Images: 6 Number of Cine: 13 DOSE AREA PRODUCT: 3886 uGy-m2 (microgray-meter squared) FL/FL upper GI w air IMPRESSION: 1. Tiny type I hiatal hernia 2. Significant gastroesophageal reflux This procedure was performed by Parish Collado PA-C, and supervised by Dr. Butler
== END 2023-04-21 09:16 | disposition home or self-care (01) ==
LOC: HO.XRAY 09:15
PROVIDERS: PCP Internal Medicine; Visit Provider Surgery
DX: E66.01 Morbid (severe) obesity due to excess calories (principal)
CPT/HCPCS: 74246

== ENCOUNTER → 2023-04-21 09:17 | Outpatient (BNV) | payer OTHER, SELFPAY | PROVIDERS: PCP Internal Medicine; Visit Provider Radiology Diagnostic Radiology | DX: Z01.818 Encounter for other preprocedural examination (principal); E66.01 Morbid (severe) obesity due to excess calories | CPT/HCPCS: 74246 ==

== ENCOUNTER 2023-05-08 08:32 | Outpatient (AMB) | payer OTHER, SELFPAY ==
--- NOTE | 2023-05-08 09:53 | MHC.OFFVISWM ---
Intake VS Expanded 05/08/23 10:03 Height 6 ft Weight 293 lb 7 oz BMI 39.8 Body Fat % 39.9 Body Fat Mass 117.1 Fat Free Mass 176.3 Visceral Fat Rating 21 Body Water % 43.3 Body Water Mass 127.1 Basal Metabolic Rate/Score 2,500 Intake Visit Reasons: TV Pre Op LSG 05/19/23 Allergies Penicillins Allergy (Mild, Verified 05/08/23 09:53) Rash Medication List - Last Reconciled 05/08/23 by Simone Oliver MD cholecalciferol (vitamin D3) 125 mcg PO DAILY ondansetron 4 mg PO Q12H pantoprazole 40 mg PO DAILY polyethylene glycol 3350 (Miralax) 17 grams PO DAILY sucralfate 10 mL PO BID HPI TV Pre Op LSG 05/19/23 HPI Details Start time: 9.50am, End time: 10.10am ?I spent 15 minutes speaking with the patient on the phone plus an additional 5 minutes reviewing and updating records for a total of 20 minutes HPI Comments History of Present Illness Details Overall weight loss: 30.3lbs, or 9.35% TBWL Is doing 2 Isopure protein shakes (1 scoop in water), 2 Zone Perfect protein bars and one meal (12 forks of protein and 12 forks of salad or vegetables) Exercise: is doing treadmill (speed 3.5 and incline 2-8) for 500 calories 4 days per week PFSH Medical History (Updated 05/08/23 @ 10:05 by Simone Oliver MD) Obesity Morbid obesity Surgical History (Updated 02/02/23 @ 08:28 by Caitlin Mora CMA) History of eye surgery Hx of appendectomy Family History (Updated 02/02/23 @ 08:29 by Caitlin Mora CMA) Mother Hypertension Father Hypertension Son No problems noted. Son Asthma Daughter Asthma Social History (Updated 02/02/23 @ 08:27 by Caitlin Mora CMA) Alcohol intake: current Alcohol intake frequency: other Patient Tobacco Use Status: Never used Tobacco Assessment & Plan Assessment & Plan (1) Obesity: Code(s): E66.9 - Obesity, unspecified Qualifiers: Obesity type: due to excess calories Obesity classification: adult class 2 (BMI 35 - 39.9) Serious obesity comorbidity presence: with serious comorbidity Body mass index: BMI 39.0-39.9 Qualified Code(s): E66.01 - Morbid (severe) obesity due to excess calories; Z68.39 - Body mass index [BMI] 39.0-39.9, adult Plan: 1. Plan for lap sleeve gastrectomy including upper GI endoscopy. All tests has been completed and reviewed and the patient is cleared for the surgery. ?If diaphragmatic or ventral hernias are present at time of surgery, these will be repaired laparoscopically as well. Risks and complications were discussed in detail including possible conversion to an open procedure, anastomotic leak, bleeding requiring transfusion, small bowel obstruction, , DVT and pulmonary embolism, cardiac, or pulmonary complications, as buttermaker helper complications such as anastomotic ulcer, insufficient weight loss and vitamin deficiencies. I emphasized the importance of close follow-up, adherence to instructions and good communication. So far he has proven to be an excellent communicator and very compliant with all our directions accomplishing a great weight loss. I believe that he is an excellent candidate and he is ready. 2. Preop prescriptions were provided and explained the purpose of each one. Need to be purchased preop. Start Pantoprazole now as you get it from the pharmacy, 1 pill per day. Sucralfate and Zofran are for after surgery as needed. 3. Bowel prep: please do 7 packets ?of Miralax mixing each one with a an 8oz glass of water, crystal light, gatorade zero, or propel ?on 05/17/23 and the same amount on 05/18/23. Continue the protein shakes during? the bowel prep. 4. Needs to purchase 1oz medicine cups . 5. Needs to purchase Children's liquid Tylenol for postop pain control. 6. Avoid aspirin, motrin, Advil, Aleve, Ibuprofen, Naproxyn. Tylenol is OK. 7. He needs to purchase the Celebrate 4:1 protein shakes from the hospital's gift shop. 8. Will do basic preop blood work-up any day between Thursday05/12/23 and Thursday05/15/23 fasting for 12 hours and is scheduled to see the Anesthesiologist prior to the day of surgery. 9. Importance of adherence to postop folllow-up and recommendations was underscored and he understands that. 10. Stop food and bars as of Thursday05/12/23 and continue with 5 Isopure protein shakes (ONE scoop EACH in 8oz water) at 7am-9am, 10am-12pm, 1pm-3pm, 4pm-6pm and at 7pm-9pm 11. No soups, broths or V8 12. The patient's?medical?history has been reviewed and they are considered low risk for post op DVT and therefore DVT prophylaxis is not considered necessary. Travel after surgery was reviewed. The patient has not disclosed any travel plans during the first 30 days after surgery and they have been advised that within the first 30 days after surgery any bus, plane, train or car travel over 2 hours in duration is contraindicated due to the possibility of developing blood clots from immobility. Any travel, needs to include periods of ambulation of 10 minutes in duration every 2 hours.? Patient was instructed to discuss any plans for travel during this period with their bariatric surgeon.? 13. Please take at the day of surgery the following medications: NONE 14. Absolutely no smoking or vaping, or marijuana until the surgery and for at least the first 4 weeks. Only nicotine patches are allowed. 15. Send me weight measurements on Fridays and then on Thursday05/19/23 the day of surgery before you go to the hospital. 16. Avoid any steroids by mouth for any reason. Let me know if someone prescribes them to you Orders: Orders TSH reflex Free T4 Today E66.9 - Obesity, unspecified Type and Screen Today E66.9 - Obesity, unspecified Partial Thromboplastin Time Today E66.9 - Obesity, unspecified C Reactive Protein Today E66.9 - Obesity, unspecified Hemoglobin A1c Today E66.9 - Obesity, unspecified Complete Blood Count Auto Diff Today E66.9 - Obesity, unspecified Insulin Today E66.9 - Obesity, unspecified Prothrombin Time INR Today E66.9 - Obesity, unspecified Lipid Panel Today E66.9 - Obesity, unspecified Comprehensive Met. Panel Today E66.9 - Obesity, unspecified Medications: New sucralfate 90-day supply 10 mL PO BID 1,200 mL 0RF K21.9 - Gastro-esophageal reflux disease without esophagitis pantoprazole 40 mg PO DAILY 30 tabs 2RF K21.9 - Gastro-esophageal reflux disease without esophagitis ondansetron Only take one every 12 hours as needed if you have nausea 4 mg PO Q12H 20 tabs 0RF nausea and vomiting R11.0 - Nausea polyethylene glycol 3350 (Miralax) Mix each packet with 8oz of water, Crystal light, or Gatorade zero, or Propel and do 7 packets on 05/17/23 and another 7 packets on 05/18/23 17 grams PO DAILY 14 ea 0RF Z01.818 - Encounter for other preprocedural examination Telehealth Telehealth Location of provider rendering services: practice address Location of patient: address on file Patient Identification confirmed using: Name, : Yes Telehealth method: voice only Patient verbally consented to treatment: Yes Patient verbally consented to billing insurance company: Yes Patient informed of any privacy concerns related to visit: Yes Minutes spent on Phone/Video with Pt.: 20 Coding Level of Care Code Tele Est Pt Level 3 (89131) Diagnoses Class 2 severe obesity due to excess calories with serious comorbidity and body mass index (BMI) of 39.0 to 39.9 in adult E66.01; Z68.39 Obesity type: due to excess calories Obesity classification: adult class 2 (BMI 35 - 39.9) Serious obesity comorbidity presence: with serious comorbidity Body mass index: BMI 39.0-39.9 Time Spent (min) 20
[2023-05-08 10:03] VITALS: BMI 39.8
== END 2023-05-08 10:10 | disposition home or self-care (01) ==
LOC: HO.HBS 08:32
PROVIDERS: PCP Internal Medicine; Visit Provider Surgery
DX: E66.01 Morbid (severe) obesity due to excess calories (principal); Z68.39 Body mass index [BMI] 39.0-39.9, adult
CPT/HCPCS: 99213

== ENCOUNTER → 2023-05-08 08:32 | Outpatient (BNVA) | payer OTHER, SELFPAY | PROVIDERS: PCP Internal Medicine; Visit Provider Surgery ==

== ENCOUNTER 2023-05-19 08:05 | Day surgery (SDC) | payer OTHER, SELFPAY ==
[2023-05-12 07:43] LABS: MANUAL DIFF FLAG NO
[2023-05-12 08:08] LABS: Basophils Absolute Auto 0.1 X10*3/uL (0.0-0.2); Basophils Percent Auto 0.6 % (0-2); Eosinophils Absolute Auto 0.4 X10*3/uL (0.0-0.4); Eosinophils Percent Auto 5.4 % (0-4); Hematocrit 48.1 % (42.0-52.0); Hemoglobin 15.7 g/dl (14.0-18.0); Imm Gran Abs Auto 0.04 X10*3/uL (0.00-0.03); Imm Gran Pct Auto 0.5 % (0.0-0.4); Lymphocytes Absolute Auto 2.4 X10*3/uL (1.2-4.9); Mean Corpuscular HGB Conc 32.6 g/dl (31.0-36.0); Mean Corpuscular Volume 88.7 fL (80.0-98.0); Mean Platelet Volume 12.9 fL (9.4-12.4); Monocytes Absolute Auto 0.9 X10*3/uL (0.1-1.2); Monocytes Percent Auto 11.2 % (2-11); Neutrophils Percent Auto 51.3 % (45-73); Platelet Count 215 X10*3/uL (160-400); Red Blood Count 5.42 X10*6/uL (4.60-5.80); Red Cell Distribution Width 13.3 % (11.0-16.0); White Blood Count 7.8 X10*3/uL (4.8-10.8)
[2023-05-12 08:19] LABS: Prothrombin Time 11.7 SEC (11.1-13.3)
[2023-05-12 08:22] LABS: Partial Thromboplastin Time 33.9 SEC (26.0-36.4)
[2023-05-12 08:48] LABS: Alanine Aminotransferase 34 U/L (0-40); Albumin Level 4.2 g/dL (3.5-5.0); Alkaline Phosphatase 59 U/L (39-117); Anion Gap 11 (12-20); Aspartate Amino Transferase 20 U/L (5-37); Bilirubin Total 0.4 mg/dL (0.0-1.0); Blood Urea Nitrogen 20 mg/dL (9-16); C Reactive Protein 0.74 mg/dL (< or = 0.50); Calcium 9.8 mg/dL (8.4-10.2); Carbon Dioxide 28 mmol/L (22-29); Chloride 106 mmol/L (96-108); Cholesterol 177 mg/dL (<200); Estimated Glomerular Filt Rate > 60; Glucose Random 103 mg/dL (60-115); HDL Cholesterol 40 mg/dL (>40); LDL Cholesterol Calculated 115 mg/dL (<100); Potassium 4.2 mmol/L (3.3-5.1); Sodium 141 mmol/L (135-145); Total Protein 7.3 g/dL (6.5-8.0); Triglycerides 110 mg/dL (<150)
[2023-05-12 09:03] LABS: Insulin 15 uU/mL (2-29); TSH reflex Free T4 0.51 uIU/mL (0.32-4.0)
[2023-05-12 09:13] LABS: Estimated Average Glucose 103 mg/dL; Hemoglobin A1c % 5.2 % (<6.0)
[2023-05-14 14:33] VITALS: BMI 38.9
--- NOTE | 2023-05-15 09:11 | P.CONAN_ITS ---
Documented by User: Maryann Navarro NP 05/15/23 09:12 HPI - Anesthesia Eval Consult details Narrative: 37yo M for Gastrectomy Sleeve-EGD, possible diaphragmatic hernia, possible ventral hernia, possible open PMFSH Active Problems Active Problems: All Active Problems (Updated 05/08/23 @ 10:05 by Simone Oliver MD) Obesity (Acute) Binge-eating disorder, in partial remission, mild (Acute) Vitamin D deficiency (Acute) H. pylori infection (Acute) Abnormal EKG (Acute) Morbid obesity (Acute) Past Medical History Medical History Obesity Morbid obesity Family History Family History Mother Hypertension Father Hypertension Son No problems noted. Son Asthma Daughter Asthma Surgical History Surgical History History of eye surgery Hx of appendectomy Social History Social History Are you a primary healthcare insurance sales agent to a significant other at home: No Do you presently have visiting nurse or other home services: No Alcohol intake: current Alcohol intake frequency: holidays/special occasions only Patient Tobacco Use Status: Never used Tobacco Use of substances other than those prescribed or required for medical reasons: No Have you been hit, kicked, punched, or otherwise hurt by someone within the past year? If so, by whom?: No Advance Directives: No Advance Directives Information Provided: Yes Advance Directives on File: No Recently lost weight without trying: No Eating poorly because of decreased appetite: No Nutrition Risks: No Nutritional Risk Poor oral hygiene: No Meds Allergies Allergy/AdvReac Type Severity Reaction Status Date / Time Penicillins Allergy Mild Rash Verified 05/08/23 09:53 Exam Height,Weight and Vital Signs: Height 6 ft 1 in Weight 133.81 kg Pertinent Lab Results Pertinent Lab Results: Laboratory Tests 05/12/23 05/12/23 07:26 07:41 WBC 7.8 RBC 5.42 Hgb 15.7 Hct 48.1 MCV 88.7 MCH 29.0 MCHC 32.6 RDW 13.3 Plt Count 215 MPV 12.9 H Immature Gran % (Auto) 0.5 H Neut % (Auto) 51.3 Lymph % (Auto) 31.0 [place] % (Auto) 11.2 H Eos % (Auto) 5.4 H Baso % (Auto) 0.6 Lymph # (Auto) 2.4 [place] # (Auto) 0.9 Eos # (Auto) 0.4 Baso # (Auto) 0.1 Abs Immat Gran (auto) 0.04 H Absolute Neuts (auto) 4.0 Absolute Nucleated RBC 0.000 Nucleated RBC % (auto) 0.0 PT 11.7 INR 1.0 APTT 33.9 Sodium 141 Potassium 4.2 Chloride 106 Carbon Dioxide 28 Anion Gap 11 L BUN 20 H Creatinine 0.96 Estim Creat Clear Calc TNP Estimated GFR > 60 Random Glucose 103 Estimat Average Glucose 103 Hemoglobin A1c % 5.2 Insulin Level 15 Calcium 9.8 Total Bilirubin 0.4 AST 20 ALT 34 Alkaline Phosphatase 59 C-Reactive Protein 0.74 H Total Protein 7.3 Albumin 4.2 Triglycerides 110 Cholesterol 177 LDL Cholesterol, Calc 115 H HDL Cholesterol 40 L TSH 0.51 Blood Type A Positive Antibody Screen NEGATIVE Narrative Narrative: EKG 01/2023 Vent. Rate : 064 BPM Atrial Rate : 064 BPM P-R Int : 190 ms QRS Dur : 094 ms QT Int : 394 ms P-R-T Axes : 033 060 -04 degrees QTc Int : 406 ms Normal sinus rhythm Abnormal QRS-T angle, consider primary T wave abnormality Abnormal ECG No previous ECGs available Exercise Stress 02/2023 Protocol: CESAR Max HR: 193 BPM 104% of Pred: 184 BPM Max BP: 202/070 mmHG Max Work Load: 10.7 METS Exercise stress test exercise 9 min 30 sec of Cesar protocol 103% MPHR and 10.7 METs, without anginal symptoms, without arrhythmias, with normotensive response to exercise, without EKG changes. Test reviewed with Dr. Rocha Assessment and Plan Assessment Anesthesia Assessment: Chart Reviewed Documented by User: Todd Hook MD 05/19/23 09:55 [facility] Past Medical History Medical History Obesity Morbid obesity Family History Family History Mother Hypertension Father Hypertension Son No problems noted. Son Asthma Daughter Asthma Family history of problems with anesthesia: No Surgical History Surgical History History of eye surgery Hx of appendectomy History of Problems with Anesthesia: No Social History Social History Are you a primary healthcare insurance sales agent to a significant other at home: No Do you presently have visiting nurse or other home services: No Alcohol intake: current Alcohol intake frequency: holidays/special occasions only Patient Tobacco Use Status: Never used Tobacco Use of substances other than those prescribed or required for medical reasons: No Have you been hit, kicked, punched, or otherwise hurt by someone within the past year? If so, by whom?: No Advance Directives: No Advance Directives Information Provided: Yes Advance Directives on File: No Recently lost weight without trying: No Eating poorly because of decreased appetite: No Nutrition Risks: No Nutritional Risk Poor oral hygiene: No Meds Allergies Allergy/AdvReac Type Severity Reaction Status Date / Time Penicillins Allergy Mild Rash Verified 05/08/23 09:53 Exam Airway Mallampati Class: III TM Dist: >3cm Neck ROM: Full Loose/Missing/Broken Teeth: No Heart: [id number] Lungs: cta b/l Assessment and Plan Assessment Anesthesia Assessment: Anesthesia Plan Discussed Final Anesthetic Review Family History of Problems with Anesthesia: No History of Problems with Anesthesia: No NPO: Yes ASA Class: III Final Preanesthetic Review: Meds/Allgs Chart Reviewed, Consent Obtained/Reviewed and Anes Risks/Benef Reviewed Patient Risk: Intermediate Procedure Risk: Intermediate Assessment/Block/Sedation in SS: Assess/Block/Sedation-SS Anesthetic Plan Anesthetic Plan: GA and Agree w/ Assess. and Plan Disposition: Standard PACU
--- NOTE | 2023-05-15 21:44 | P.HPSUR_ITS ---
Pre-Procedural Eval Section A Date of Service: 05/15/23 The patient is an INPATIENT: No The History & Physical has been completed within 30 days and I have reviewed it.: Yes Section B Chief Complaint: Morbid (severe) obesity due to excess calories Relevant Family History (Specify if Yes): Yes Relevant Social History: None Present Medications: None Medical History: No relevant PMH History of Previous Operations: No relevant previous surgery Allergies: Allergies Allergy/AdvReac Type Severity Reaction Status Date / Time Penicillins Allergy Mild Rash Verified 05/08/23 09:53 Review of Systems Sugical H&P ROS: Negative: Constitution, Cardiovascular, Respiratory, Neurological, Psychiatric, Hem-Onc, Allergic/Immunologic, Gastrointestinal, Genitourinary, Musculoskeletal, Integumentary, Endocrine and Eyes/Ears/N ose/Throat Exam Surgical H&P Exam: Normal: HEENT, Normal: Heart, Normal: Lungs, Normal: Extremities, Normal: Abdomen, Normal: Skin and Normal: Neurological Plan Diagnosis/Plan: Unchanged I have reviewed the history and physical and performed a pertinent physical examination on my patient. No changes have occurred unless specified. Time Spent With Patient Time: Total time managing care of this patient today ____ minutes.
[2023-05-19] VITALS (12 sets, daily range): BP systolic 121–168; BP diastolic 72–98; PULSE 73–99; RESP 14–22; TEMP 36.1–36.8; O2SAT 94–100; BMI 41.0; BMI 40.9
[2023-05-19] MEDS: Lactated Ringers 1,000 ML 999 ML IV (08:40)
[2023-05-19] MEDS: Aprepitant 32 MG/4.4 ML VIAL IVPUSH (08:45)
[2023-05-19] MEDS: Lactated Ringers 1,000 ML 100 ML IVCONT ×3 (09:00→19:28)
--- NOTE | 2023-05-19 09:50 | P.BOP_ITS ---
Brief Operative Note Date of Service: 05/19/23 Pre-op diagnosis: Severe obesity with comorbidities (see below) Post-op diagnosis: same Procedure: INITIAL PATIENT BMI ON PRESENTATION AT OUR OFFICE: 43.9 kg/m2 LAST BMI BEFORE SURGERY: 38.2 kg/m2 COMORBIDITIES: GERD, liver steatosis, cholelithiasis ?The patient presented to the Weight Management Program with significant obesity that was negatively impacting the patient's comorbidities as listed above.? The program is a phased program with a special focus on preoperative medical weight management to promote substantial weight loss and prepare the patients for the second phase of the program: bariatric surgery. The patient participated in an intensive weekly lifestyle ?intervention and exercise program during which the patient ?has lost between the initial office visit and the last preoperative visit 35.6lbs, or 11% of initial actual body weight. It was deemed appropriate for the patient to now have bariatric surgery. In light of the current Covid-19 pandemic and the well documented strong association of obesity and increased risk of worse outcomes if infected with Covid-19 (REFERENCES: https://pubmed.ncbi.nlm.nih.gov/98025818/ ,? https://pubme d.ncbi.nlm.nih.gov/44290966/ ), any delay in undergoing bariatric surgery may lead to the patient's worsening health condition and increased?risk of more severe Covid-19 disease if infected. In addition a recent?study from [facility] published in [facility] on 05/13/2021 ([email or web address]) found that, among patients with obesity, substantial weight loss achieved with surgery was associated with improved outcomes of COVID-19 infection. The findings suggest that obesity can be a modifiable risk factor for the severity of COVID-19 infection. In addition, the patient met the BMI-criteria for bariatric surgery based on the BMI on initial presentation. The patient should not be penalized for achieving such weight loss because ?it is not sustainable long-term without surgical intervention and it was achieved in preparation for bariatric surgery ?under my direction and based on my published research ([email or web address]).pdf and? https://www.soard.org/article/[email or web address](26)46259-X/pdf ) ?that a 10% preoperative weight loss improves long-term weight loss after surgery and reduces perioperative complications.? Insurance carriers such as [facility] have endorsed my recommendations ?and have included in their policies criteria to include a 10% preoperative weight loss requirement. PROCEDURE: Esophago-gastroscopy laparoscopic sleeve gastrectomy and laparoscopic gastropexy INDICATIONS: This is a 37 year-old male who was electively scheduled for laparoscopic, possibly open sleeve gastrectomy. The risks and complications of the procedure were discussed with the patient in advance, particularly the possibility of ; pulmonary embolism; staple line leak; bleeding; GERD; cardiac, pulmonary, or renal complications; as well as long-term problems such as insufficient weight loss, vitamin deficiency, strictures, or ulcers. The patient understood all the risks, and was in agreement to proceed with surgery. DESCRIPTION OF PROCEDURE: After informed consent was obtained from the patient, the patient was given preoperative antibiotics, and was transferred to the operating room. After successful induction of general anesthesia, pneumatic compression devices were placed on both lower extremities. An upper endoscopy was performed next. The oropharynx and esophagus appeared to be within normal limits. There was no diaphragmatic hernia present consistent with the findings of the preoperative upper GI. The stomach was entered. Then after all fluid and air were suctioned and the stomach was fully decompressed, the scope was withdrawn and secured in the mid esophagus. The patient was then prepped and draped in the usual sterile manner, and abdominal access was established at the right upper quadrant with the Soni technique. A 12 mm blunt port was inserted, and the abdomen was insufflated with CO2 to a pressure of 15 mmHg. Under direct visualization, additional ports were placed, specifically two 5 mm Versi-step ports to the left upper quadrant, and a 5 mm Versi-Step port to the right upper quadrant. 1% lidocaine plain was used to infiltrate all port sites as well as all fascia defects. Using the EndoClose suture passer device, I placed a #1 Polysorb tie across the falciform ligament in order to retract it up against the abdominal wall and prevent injury of the ligament with our instruments during the procedure. Following that, the patient was placed in a steep reverse Trendelenburg position. An additional 5 mm port was placed to the right flank for the Mediflex retractor that was used to retract the left lobe of the liver. The gastro-esophageal fat pad was opened with the ultrasonic device (Thunderbeat, Olympus) and the anterior esophagus and hiatus were exposed. The angle of His was opened with the ultrasonic device the fundus of the stomach from any diaphragmatic and splenic attachments. I then opened the gastrocolic ligament between the transverse colon and the greater curvature of the stomach with the ultrasonic device to enter the lesser sac and facilitate the ligation of the short gastric vessels. I started at a mid-point along the greater curvature and using the Thunderbeat, all short gastric vessels were divided all the way to the angle of His until the left daniel was completely dissected at its entirety. I then divided the gastro-colic ligament distally to a distance of about 3-4 cm proximal to the pylorus. The stomach was then divided transversely with one Endo SUSAN-45 purple and four SUSAN-60 articulating purple loads using the SIGNIA stapler and loads. Every effort was made that the gastric sleeve had a tubular shape and an even caliber throughout. Once the sleeve resection was completed, the staple line of the gastric sleeve was reinforced with Hemoclips. The resected stomach was retrieved without difficulty from the Soni port. A gastropexy was then performed in order to prevent postoperative GERD and partial gastric volvulus. Several interrupted 2.0 Surgidac sutures were placed between the sleeve's staple line and the previously divided greater omentum and gastro-colic ligament using the Endo-Stitch device. ?An upper endoscopy was performed. There was no narrowing at the GE junction. The scope was easily advanced all the way to the pylorus which was clearly visualized. There was no narrowing anywhere and the sleeve's caliber was even throughout. The sleeve's staple line was inspected and there was no evidence of ischemia, bleeding or dehiscence. At that point the gastroscope was withdrawn from the patient?s mouth while we were decompressing the bowel and the stomach from any remaining air. I looked into the lesser sac to see how the sleeve was situating and it was situating well. There was no bleeding from the staple line, spleen, or short gastric vessels. The Mediflex retractor was removed, and the undersurface of the liver was inspected and there was no bleeding. The patient was placed in supine position. I closed the fascial defect of the 12 mm port site with a figure of eight #1 Polysorb suture. Then 30cc Ropivacaine with 10 mg of Dexamethasone were used to infiltrate the fascial closure as well as all skin incisions. At this point, the abdomen was deflated, all ports were removed under direct vision, and no bleeding was noted from any of the port sites. The skin incisions were irrigated with saline and were closed with 4-0 absorbable monofilament sutures. Steri- Strips and OpSites were used to cover all incisions. The patient was extubated and was transferred in stable condition to the recovery room for further care. I was present and performed all prince parts of the procedure. Ms. Perry was the historian research assistant. There were no residents to assist with this case. Isaiah Oliver MD, PhD, FACS Surgeon: Simone Oliver MD Anesthesia: GETA, local and other (TAP block) Was an Warehouse Manager used for this Procedure?: No Warehouse Manager: Crystal Perry Estimated blood loss (mL): 10 IV fluids (mL): 3,000 Urine output (mL): 0 (No Germain to record output) Pathology: other (Stomach) Condition: stable Disposition: PACU
--- NOTE | 2023-05-19 09:53 | P.PNGS_ITS ---
Subjective Subjective Date of Service: 05/20/23 Interval history: Feels well. Mild incisional pain. He is tolerating phase 1 bariatric diet Physical Exam 2 Vital Signs: Vital Signs: Last Vital Signs Temp 98.2 F 05/19/23 08:38 Pulse 73 05/19/23 08:38 Resp 16 05/19/23 08:38 BP 139/79 05/19/23 08:38 Pulse Ox 96 05/19/23 08:38 O2 Del Method Room Air 05/19/23 08:38 BMI result Body Mass Index 41.0 GI: Inspection: Yes normal to inspection, Yes incision (clean, dry and intact) and Yes obesity Palpation (GI): Soft to palpation Extrem: Right lower extremity: normal to inspection (no calf tenderness) L eft lower extremity: normal to inspection (no calf tenderness) Objective Data Active Medications Lactated Ringer's (Lr) 1,000 mls @ 100 mls/hr IVCONT .Q10H JUSTIN Last Admin: 05/19/23 09:00 Dose: 100 mls/hr Documented By: VECC Labs 05/20/23 05:55 05/20/23 05:55 Procedures Date of Service Date of Service: 05/20/23 Progress Note: A&P Assessment and plan (1) BMI 38.0-38.9,adult: Status: Acute (2) Steatosis, liver: Status: Acute (3) Cholelithiasis: Status: Acute (4) GERD (gastroesophageal reflux disease): Status: Acute (5) S/P laparoscopic sleeve gastrectomy: Status: Acute (6) Morbid obesity: Status: Acute Assessment and Plan: s/p laparoscopic sleeve gastrectomy and gastropexy Doing well Will check am labs and if OK the patient will be discharged home (7) Abnormal EKG: Status: Acute Time Spent With Patient Time: Total time managing care of this patient today ____ minutes. Quality Stroke Does the patient have a stroke diagnosis?: No VTE Prior VTE?: No VTE Risk Level:: Surgical - moderate VTE Device Contraindication: N/A - Device Ordered VTE Drug Contraindication: Treatment Not Indicated
[2023-05-19] MEDS: levoFLOXacin/D5W 500 MG/100 ML PIGGYBACK 100 MG IV (10:35)
[2023-05-19] MEDS: Acetaminophen 1,000 MG/100 ML PIGGYBACK 400 MG IV (11:00)
--- NOTE | 2023-05-19 12:41 | PM.DS ---
DS: Providers Provider Date of Service: 05/20/23 Primary care physician: Andrzej Orellana MD DS: Diagnosis Discharge Diagnosis (1) Obesity: Status: Acute (2) BMI 38.0-38.9,adult: Status: Acute (3) Steatosis, liver: Status: Acute (4) Cholelithiasis: Status: Acute (5) GERD (gastroesophageal reflux disease): Status: Acute DS: Summary Hospital Course Hospital Course: ADMITTING DIAGNOSIS: morbid obesity DISCHARGE DIAGNOSIS: same, s/p laparoscopic sleeve gastrectomy PAST SURGICAL HISTORY: appendectomy PROCEDURE: upper endoscopy, laparoscopic sleeve gastrectomy DISCHARGE SUMMARY: History of Present Illness: The patient is a 37 year-old man with a BMI of 43.9 kg/m2 and associated co-morbidities as described above. The patient had extensive work-up, lost 30.3 lbs preoperatively and was electively scheduled for laparoscopic, possible open sleeve gastrectomy and gastropexy. Risks and complications of the surgery were discussed with the patient in advance, particularly the possibility of , pulmonary embolism, anastomotic leak, bleeding, bowel injury, GERD, cardiac, renal or pulmonary complications. The patient understood all the risks and was in agreement with the surgical plan. Hospital Course: The patient underwent an uneventful laparoscopic sleeve gastrectomy with gastropexy on the day of admission. Postoperatively, the patient was transferred to the surgical floor. The patient received IV Acetaminophen and IV dilaudid for pain control. Patient was started on bariatric phase 1 diet POD #0. On postoperative day one, the patient was feeling well without nausea, vomiting, fevers, or tachycardia. The patient had some mild incisional pain and the abdomen was soft. On the morning of postoperative day one, the patient was continued on 1 ounce of water or ice every half hour. During the day, the patient did fairly well, having some incisional pain, but able to ambulate adequately and to tolerate liquids well. Since the patient is doing well, we decided that the patient was ready to be discharged. The patient was given instructions to follow-up with me next week and to call my office for any fever over 101, persistent abdominal pain, nausea, vomiting, GERD, symptoms of DVT such as calf tenderness, or leg swelling, or pulmonary embolism such as chest pain or shortness of breath. The patient was also instructed to drink 40-60 ounces of liquids per day using the 1-ounce cups. The patient had been given prescriptions for Tylenol for pain, Zofran prn for nausea, and pantoprazole and carafate previously. The patient was encouraged to ambulate and use the incentive spirometer. The patient was allowed to shower, but no baths, and encouraged to stay active at home. All of these instructions were given to the patient personally. All questions were answered and the patient understood all instructions, the instructions were also given to the patient in print. Time Attestation Discharge coordination time: Less than 30 minutes Quality: Safe Use of Opioids Does Pt have an Active Cancer Diagnosis on the Problem List?: No Quality: Stroke Does the patient have a stroke diagnosis?: No Physical Exam Vital Signs: Vital Signs: Last Vital Signs Temp 98.2 F 05/19/23 08:38 Pulse 73 05/19/23 08:38 Resp 16 05/19/23 08:38 BP 139/79 05/19/23 08:38 Pulse Ox 96 05/19/23 08:38 O2 Del Method Room Air 05/19/23 08:38 BMI result Body Mass Index 41.0 DS: Data Data Completed and Pending Pending studies at discharge: Pending at discharge 05/19/23 11:55 Surgical [PTH] Routine Discharge Plan Discharge Patient Disposition: Home, Self-Care Referrals: Andrzej Orellana MD [Primary Care Provider] - 1 Week Discharge Medications: No Action cholecalciferol (vitamin D3) 125 mcg (5,000 unit) capsule 125 mcg PO DAILY Qty: 30 2RF sucralfate 100 mg/mL suspension 10 ml PO BID 30 Days Qty: 600 2RF Rx Instructions: 90-day supply pantoprazole 40 mg tablet,delayed release (DR/EC) 40 mg PO DAILY Qty: 30 2RF ondansetron 4 mg tablet,disintegrating 4 mg PO Q12H Qty: 20 0RF Rx Instructions: Only take one every 12 hours as needed if you have nausea polyethylene glycol 3350 [Miralax] 17 gram powder in packet 17 g PO DAILY Qty: 14 0RF Rx Instructions: Mix each packet with 8oz of water, Crystal light, or Gatorade zero, or Propel and do 7 packets on 05/17/23 and another 7 packets on 05/18/23 Discharge Orders: Discharge Order (Routine); Ordered 05/20/23 Ordered By: Simone Oliver Activity Restrictions/Additional Instructions: No tub baths, sex or returning to work until discussed at first post op appointment. No exercise, alcohol, tobacco or illegal drug use. Continue to use incentive spirometer hourly while awake. Walk in home for 5- 10 minutes every 2 hours during the first week. Continue phase 1 diet today and start phase 2 diet tomorrow morning. Follow all instructions in the bariatric handbook and call with any questions. 1. Please call your doctor or come back to the emergency room should any new symptoms arise. 2. You will receive a courtesy call from [facility] 24-48 hours after discharge. 3. Activity: abstain from alcohol, practice limited stair climbing, no bending, no driving, no exercise, no illicit substances, no lifting, no sex, no tub bath, no work. 4. Diet: continue as discussed with bariatric team.. 5. Dressing Change/Wound Care: Do not change or remove surgical dressings unless they are wet or soiled. 6. Call your doctor if: - Your temperature exceeds 101.5 F - You experience excessive pain or swelling - You have an unexpected reaction to medication - You have excessive bleeding - You experience continued vomiting/nausea - Your incision begins to separate - Your incision shows signs of infection such as increased redness, swelling, excessive pain, heat, or drainage (light blood or clear fluid is normal) 7. General instructions: No lifting greater than 5 lbs for 1 week and not more than 20lbs the next 3?weeks. No driving until seen at the office in 5-7 days after surgery. If you do not move your bowels in the next 2 days, please tell?Dr. Oliver. Please walk around your home every hour or two to prevent blood clots from forming in your legs. You do not need to wake from sleeping to walk. Please sleep in a bed or couch to prevent kinking at the hips and knees. Please take your incentive spirometer (your lung insurance operations rep) home with you and use it for the next few days to prevent pneumonia. You may shower, no hot tubs, baths or swimming pools.?Please follow the post op diet instructions you are?given by Dr Kaushal granados? and text me daily at 5-6pm for an update.?If you have any issues or concerns or questions please communicate this to him via text.? The Celebrate shakes have all of the bariatric vitamins you need if you consume these shakes. If you are drinking other protein shakes, you will need to purchase the Celebrate multivitamins and calcium that are available in the hospital gift shop on the first floor of the main hospital.??Do not take anything without first discussing with Dr Oliver. Please make sure you are consuming at least 40 ounces of fluids per day starting the?day AFTER your discharge from the hospital. Always drink 1-2 ml per minute using the 5ml?syringe. If you drink faster you may experience?bloating,?gas pain, burping, nausea or heartburn. In that case please slow down your pace and use the syringe to?understand better the?proper?pace and volume of drinking. Do not hesitate to contact the office with any questions at . The patient's medical history has been reviewed and they are considered low risk for post op DVT and therefore DVT prophylaxis is not considered necessary. Travel after surgery was reviewed. The patient has not disclosed any travel plans during the first 30 days after surgery and they have been advised that within the first 30 days after surgery any bus, plane, train or car travel over 2 hours in duration is contraindicated due to the possibility of developing blood clots from immobility. Any travel, needs to include periods of ambulation of 10 minutes in duration every 2 hours. The patient was instructed to discuss any plans for travel during this period with their bariatric surgeon. Discharge Date/Time: 05/20/23 09:10
--- NOTE | 2023-05-19 12:59 | PHA.MEDREC ---
Pharmacy Consult ? Medication Reconciliation Pharmacy has completed the medication reconciliation. Reviewed med rec done by nursing (Karlee).
[2023-05-19 13:03] LABS: Hematocrit 45.7 % (42.0-52.0); Hemoglobin 15.4 g/dl (14.0-18.0)
[2023-05-19 13:17] LABS: Anion Gap 15 (12-20); Blood Urea Nitrogen 10 mg/dL (9-16); Calcium 9.3 mg/dL (8.4-10.2); Carbon Dioxide 24 mmol/L (22-29); Chloride 105 mmol/L (96-108); Creatinine Clr Calc Pharmacy 173.1; Estimated Glomerular Filt Rate > 60; Glucose Random 119 mg/dL (60-115); Potassium 4.2 mmol/L (3.3-5.1); Sodium 140 mmol/L (135-145)
[2023-05-19] MEDS: Famotidine/PF 20 MG/2 ML VIAL IVPUSH ×2 (14:32→21:20)
[2023-05-19] MEDS: Acetaminophen 1,000 MG/100 ML PIGGYBACK 16.7 MG IV ×2 (16:40→21:20)
[2023-05-19] MEDS: 0.9 % Sodium Chloride Flush 3 ML SYRINGE IVFLUSH (21:20)
[2023-05-20] MEDS: Acetaminophen 1,000 MG/100 ML PIGGYBACK 16.7 MG IV (03:23)
[2023-05-20 03:57] VITALS: BP 118/69; PULSE 67; RESP 16; TEMP 36.6; O2SAT 96
[2023-05-20] MEDS: Lactated Ringers 1,000 ML 100 ML IVCONT (04:55)
[2023-05-20 07:01] LABS: MANUAL DIFF FLAG NO
[2023-05-20 07:21] LABS: Hematocrit 42.1 % (42.0-52.0); Hemoglobin 14.1 g/dl (14.0-18.0); Imm Gran Abs Auto 0.06 X10*3/uL (0.00-0.03); Imm Gran Pct Auto 0.5 % (0.0-0.4); Lymphocytes Absolute Auto 1.5 X10*3/uL (1.2-4.9); Lymphocytes Percent Auto 12.1 % (20-40); Mean Corpuscular HGB Conc 33.5 g/dl (31.0-36.0); Mean Corpuscular Hemoglobin 28.6 pg (27.0-33.0); Mean Corpuscular Volume 85.4 fL (80.0-98.0); Mean Platelet Volume 12.7 fL (9.4-12.4); Monocytes Absolute Auto 1.2 X10*3/uL (0.1-1.2); Monocytes Percent Auto 9.5 % (2-11); Neutrophils Absolute Auto 9.7 x10*3/uL (2.0-8.3); Neutrophils Percent Auto 77.9 % (45-73); Platelet Count 188 X10*3/uL (160-400); Red Blood Count 4.93 X10*6/uL (4.60-5.80); Red Cell Distribution Width 13.1 % (11.0-16.0); White Blood Count 12.5 X10*3/uL (4.8-10.8)
[2023-05-20] MEDS: Famotidine/PF 20 MG/2 ML VIAL IVPUSH (07:36)
[2023-05-20 07:37] VITALS: BP 140/64; PULSE 66; RESP 17; TEMP 36.3; O2SAT 98
[2023-05-20 07:38] LABS: Anion Gap 13 (12-20); Blood Urea Nitrogen 9 mg/dL (9-16); Calcium 9.5 mg/dL (8.4-10.2); Carbon Dioxide 27 mmol/L (22-29); Chloride 105 mmol/L (96-108); Creatinine Clr Calc Pharmacy 163.6; Estimated Glomerular Filt Rate > 60; Glucose Random 99 mg/dL (60-115); Potassium 4.6 mmol/L (3.3-5.1); Sodium 140 mmol/L (135-145)
--- NOTE | 2023-05-20 08:06 | HO.POSTANES ---
Post Anesthesia Evaluation Post Anesthesia Evaluation Date of Service: 05/20/23 Vital Signs: Vital Signs Temp Pulse Resp BP Pulse Ox O2 Del Method 05/20/23 07:43 Room Air 05/20/23 07:37 97.3 F 66 17 140/64 H 98 Room Air 05/20/23 03:57 97.9 F 67 16 118/69 96 Room Air 05/19/23 23:29 98.0 F 82 16 127/72 96 Room Air Anesthesia: General Endotracheal-GETA Mental Status: Awake Pain Control: Satisfactory Nausea/Vomiting: None Hydration: Adequate Anesthesia-Related Issues: No Anes. Related Issues
--- NOTE | 2023-05-20 09:33 | MHC.CM.PN ---
Patient is from home w/ . Functionally independent. No services or equipment. PCP: Andrzej Orellana MD HCP: Patient completed HCP naming Sulema as agent [phone] DP: Patient is medically cleared for dc home, self care, to transport
== END 2023-05-20 09:10 | disposition home or self-care (01) ==
LOC: HO.SSS 12:41 → HO.S3 14:15
PROVIDERS: Physician Assistant; PCP Internal Medicine; Visit Provider Surgery
PROC: (CPT 43845; principal; 2023-05-19 10:10)
DX: E66.01 Morbid (severe) obesity due to excess calories (principal); Z68.39 Body mass index [BMI] 39.0-39.9, adult; R94.31 Abnormal electrocardiogram [ECG] [EKG]; K76.0 Fatty (change of) liver, not elsewhere classified; K80.20 Calculus of gallbladder without cholecystitis without obstruction; K21.9 Gastro-esophageal reflux disease without esophagitis; E55.9 Vitamin D deficiency, unspecified; Z79.899 Other long term (current) drug therapy; Z88.0 Allergy status to penicillin
CPT/HCPCS: 43775; 43999; 36415; 80048; 80053; 80061; 83036; 83525; 84443; 85014; 85018; 85025; 85610; 85730; 86140; 86850; 86900; 86901; 88307; 88342; 99024; A4649; C9145; J0131; J1100; J1170; J1956; J2250; J2405; J2550; J2704; J2795; J3010; J7120

== ENCOUNTER → 2023-05-19 08:05 | Outpatient (BNV) | payer OTHER, SELFPAY | PROVIDERS: PCP Internal Medicine; Visit Provider Surgery | DX: E66.9 Obesity, unspecified (principal); Z68.38 Body mass index [BMI] 38.0-38.9, adult | CPT/HCPCS: 43659; 43775; 99024 ==

== ENCOUNTER 2023-05-27 13:19 | Outpatient (AMB) | payer OTHER, SELFPAY ==
--- NOTE | 2023-05-27 13:30 | A.OFFVIS_ITS ---
Intake VS Expanded 05/27/23 13:38 BP 137/76 Blood Pressure Location Rt brachial Blood Pressure Position Sitting Pulse 91 Pulse Source Pulse Oximeter Temp 96.0 F L Temperature Source Tympanic Pulse Oximetry 95 Oxygen Delivery Method Room Air Height 6 ft Weight 287 lb 3.2 oz BMI 38.9 Body Fat % 37.1 Body Fat Mass 124.6 Fat Free Mass 180.6 Visceral Fat Rating 18.0 Body Water % 43.4 Body Water Mass 124.6 Muscle Mass/Score 171.8 Basal Metabolic Rate/Score 2,530 Intake Visit Reasons: (OV) PO LSG 05/19/23 Allergies Penicillins Allergy (Mild, Verified 05/08/23 09:53) Rash Medication List - Last Reconciled 05/27/23 by Crystal Perry PA-C pantoprazole 40 mg PO DAILY sucralfate 10 mL PO BID 30 days HPI HPI Comments History of Present Illness Details 37 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 No nausea, emesis, abd pain or reflux. Tolerating 2 4:1 shakes with UAM over 2.5 hours and 1 Isopure shake 1 scoop. Feels the Celebrate shakes are too sweet for him. Exercise - treadmill speed 3.5, incline 2-8 for 3- 400 calories - approved by Dr Raymundo [facility] Medical History Obesity Morbid obesity Surgical History History of eye surgery Hx of appendectomy Family History Mother Hypertension Father Hypertension Son No problems noted. Son Asthma Daughter Asthma Social History Household Members: Spouse Housing: House Are you a primary care specialist to a significant other at home: No Do you presently have visiting nurse or other home services: No Alcohol intake: current Alcohol intake frequency: holidays/special occasions on ly Patient Tobacco Use Status: Never used Tobacco service: No Physical Exam Vital Signs: Last Vital Signs Temp 96.0 F L 05/27/23 13:38 Pulse 91 05/27/23 13:38 BP 137/76 05/27/23 13:38 Pulse Ox 95 05/27/23 13:38 Oxygen Delivery Method Room Air 05/27/23 13:38 BMI result Body Mass Index 38.9 Const General: cooperative, comfortable and no acute distress GI Inspection: Yes incision (incisions c/d/i with steri strips. Steri strips replaced on epigastric inc) Palpation (GI): Soft to palpation, nontender, no hernias and no masses Extrem General: No no calf tenderness Assessment & Plan Assessment & Plan (1) S/P laparoscopic sleeve gastrectomy: Code(s): Z98.84 - Bariatric surgery status Plan: Pt is stable without post op complications. Pt will continue meal and exercise plans per Dr Oliver. May dilute Celebrate shakes with 2 -3 oz water and then drink at same speed - will take longer to finish. Will continue to text with Dr Zackary Nino appt with Daniela Hill in 4 weeks. Coding Level of Care Code Global (42215) Diagnoses S/P laparoscopic sleeve gastrectomy Z98.84
[2023-05-27 13:38] VITALS: BP 137/76; PULSE 91; TEMP 35.6; O2SAT 95; BMI 38.9
== END 2023-05-27 15:07 | disposition home or self-care (01) ==
PROVIDERS: PCP Internal Medicine; Visit Provider Physician Assistant
DX: Z98.84 Bariatric surgery status (principal)
CPT/HCPCS: 99024

== ENCOUNTER → 2023-05-27 13:19 | Outpatient (BNVA) | payer OTHER, SELFPAY | PROVIDERS: PCP Internal Medicine; Visit Provider Physician Assistant ==

== ENCOUNTER 2023-06-24 04:49 | Emergency (ER) | payer OTHER, SELFPAY ==
--- NOTE | ~2023-06-24 | CT_ITS ---
EXAMINATION: CT ABDOMEN AND PELVIS WITHOUT CONTRAST CLINICAL INFORMATION: Right flank and right lower quadrant pain. COMPARISON: Abdomen ultrasound from 03/10/2023. TECHNIQUE: Multidetector volumetric imaging was performed from the superior aspect of the liver through the pubic symphysis. Sagittal and coronal reformatted images were obtained on the technologist's workstation. This CT examination was performed using dose optimization techniques as appropriate, variously including the following: *Automated exposure control *Adjustment of mA and/or kV according to patient size (this includes techniques or standardized protocols for targeted exams where dose is matched to indication/reason for exam; i.e. extremities or head) *Use of iterative reconstruction technique DLP: 978 mGy-cm FINDINGS: LUNG BASES: No pulmonary consolidation or pleural effusion. HEPATOBILIARY: Liver has density of approximately 33 Hounsfield units on these noncontrast images; this is suggestive of steatosis. No evidence of focal liver lesion or intrahepatic ductal dilatation. Gallbladder has a few calcified stones. No gallbladder wall thickening or pericholecystic fluid. No dilated bile ducts. PANCREAS: No edema, pancreatic ductal dilatation or mass. SPLEEN: Normal. ADRENAL GLANDS: Normal. KIDNEYS AND URETERS: Kidneys are normal in size. No renal or ureteral stones. No perinephric edema or perinephric fluid collection. Although mild right hydronephrosis is noted, no evidence of any stone at the ureteropelvic junction or within the ureter. BLADDER: Underdistended and grossly normal. No evidence of a bladder stone or calculus at the ureterovesical junction. BOWEL AND PERITONEUM: Status post gastric sleeve. No focal bowel wall thickening, mesenteric fat stranding or free fluid. No pneumoperitoneum. The terminal ileum is normal. The appendix is not identified. No inflammatory changes within the right lower quadrant. ABDOMINAL WALL: Unremarkable. VASCULATURE: Unremarkable. LYMPH NODES: No pathologic sized lymph nodes in the abdomen or pelvis. No inguinal lymphadenopathy. PELVIC VISCERA: Unremarkable. MUSCULOSKELETAL: Unremarkable. CT/CT abdomen pelvis wo IV con IMPRESSION: * Mild right hydronephrosis is noted. However, the cause of this is uncertain. No evidence of any urinary tract stone. Consider possibility that the patient has recently passed a small ureteral stone. Alternatively, if the patient has fever and leukocytosis in addition to the right-sided flank pain, then the possibility of urinary tract infection would be considered. * Diffuse hepatic steatosis. * Prior gastric sleeve procedure.
[2023-06-24 05:20] VITALS: BP 146/83; PULSE 77; RESP 18; TEMP 36.6; O2SAT 100; BMI 35.5
[2023-06-24 05:24] LABS: MANUAL DIFF FLAG NO
[2023-06-24 05:28] LABS: Basophils Percent Auto 0.4 % (0-2); Eosinophils Absolute Auto 0.2 X10*3/uL (0.0-0.4); Eosinophils Percent Auto 2.3 % (0-4); Hematocrit 47.6 % (42.0-52.0); Hemoglobin 15.9 g/dl (14.0-18.0); Imm Gran Abs Auto 0.02 X10*3/uL (0.00-0.03); Imm Gran Pct Auto 0.3 % (0.0-0.4); Lymphocytes Absolute Auto 2.3 X10*3/uL (1.2-4.9); Lymphocytes Percent Auto 30.1 % (20-40); Mean Corpuscular HGB Conc 33.4 g/dl (31.0-36.0); Mean Corpuscular Hemoglobin 28.1 pg (27.0-33.0); Mean Corpuscular Volume 84.1 fL (80.0-98.0); Mean Platelet Volume 13.3 fL (9.4-12.4); Monocytes Absolute Auto 0.8 X10*3/uL (0.1-1.2); Monocytes Percent Auto 10.7 % (2-11); Neutrophils Absolute Auto 4.4 x10*3/uL (2.0-8.3); Neutrophils Percent Auto 56.2 % (45-73); Platelet Count 169 X10*3/uL (160-400); Red Blood Count 5.66 X10*6/uL (4.60-5.80); White Blood Count 7.8 X10*3/uL (4.8-10.8)
[2023-06-24 05:29] VITALS: BP 143/82; PULSE 94; RESP 18; O2SAT 98
[2023-06-24] MEDS: Ketorolac Tromethamine 15 MG/ML VIAL IVPUSH (05:48)
[2023-06-24] MEDS: droPERidol 5 MG/2 ML VIAL 1.25 MG IVPUSH (05:49)
[2023-06-24] MEDS: 0.9 % Sodium Chloride 1,000 ML 999 ML IV ×2 (05:49→07:34)
[2023-06-24 05:51] LABS: Alanine Aminotransferase 54 U/L (0-40); Albumin Level 4.9 g/dL (3.5-5.0); Alkaline Phosphatase 70 U/L (39-117); Anion Gap 21 (12-20); Aspartate Amino Transferase 33 U/L (5-37); Bilirubin Total 1.2 mg/dL (0.0-1.0); Blood Urea Nitrogen 16 mg/dL (9-16); Calcium 10.6 mg/dL (8.4-10.2); Carbon Dioxide 24 mmol/L (22-29); Chloride 99 mmol/L (96-108); Creatinine Clr Calc Pharmacy 106.7; Estimated Glomerular Filt Rate > 60; Glucose Random 112 mg/dL (60-115); Potassium 3.4 mmol/L (3.3-5.1); Sodium 141 mmol/L (135-145); Total Protein 8.1 g/dL (6.5-8.0)
[2023-06-24 06:12] VITALS: BP 140/80; PULSE 88; RESP 18; O2SAT 98
[2023-06-24 07:14] LABS: Appearance Urine Clear; Color Urine Yellow; Glucose Urine UA Negative (Negative); Leukocyte Esterase Urine Negative (Negative); Nitrite Urine Negative (Negative); PH 6.5 (5.0-9.0); Specific Gravity - Urine >= 1.030 (1.005-1.025); UMIC TRIGGER UACC YES; Urine Blood Trace (Negative); Urine Ketones >=80 mg/dL (Negative); Urine Protein 100 (2+) mg/dL (Neg-Trace)
--- NOTE | 2023-06-24 07:23 | ED.GENADULT ---
HPI - General Adult General Chief complaint: Abdominal Pain Stated complaint: abd pain Time Seen by Provider: 06/24/23 05:36 History of Present Illness HPI narrative: The patient is a 37-year-old male who had gastric sleeve surgery 1 month ago on May 19. He was feeling fine yesterday. In the middle of the night this morning he woke up with acute right lower radiating to his flank. He has never had pain like this before. He describes the pain as severe. He has had associated nausea. No fever, sweats, chills. He was restless with the pain he says. He says the patient is exclusively on the right side. Related Data Previous Rx's Medication Instructions Recorded pantoprazole 40 mg tablet,delayed 40 mg PO DAILY #30 tabs 05/08/23 release sucralfate 100 mg/mL oral 10 ml PO BID 30 days #600 mL 05/12/23 suspension morphine 15 mg immediate release 15 mg PO Q6H PRN pain #10 tabs 06/24/23 tablet ondansetron 4 mg disintegrating 4 mg PO Q8H PRN nausea and 06/24/23 tablet vomiting #20 tabs Allergies Allergy/AdvReac Type Severity Reaction Status Date / Time Penicillins Allergy Mild Rash Verified 05/08/23 09:53 Review of Systems Review of Systems: Yes all other systems are reviewed and are negative [facility] Past Medical History Medical History Obesity Morbid obesity Surgical History History of eye surgery Hx of appendectomy Family History Family History Mother Hypertension Father Hypertension Son No problems noted. Son Asthma Daughter Asthma Social History Social History Household Members: Spouse Housing: House Are you a primary menagerie caretaker to a significant other at home: No Do you presently have visiting nurse or other home services: No Alcohol intake: current Alcohol intake frequency: holidays/special occasions only Patient Tobacco Use Status: Never used Tobacco Smoked in Last 30 Days: No Use of substances other than those prescribed or required for medical reasons: No Advance Directives: No Advance Directives Information Provided: No service: No Physical Exam ED Vital Signs: Vital Signs - 24 hr 06/24/23 05:20 06/24/23 05:29 06/24/23 06:12 Temperature 97.9 F Pulse Rate 77 94 88 Respiratory Rate 18 18 18 Blood Pressure 146/83 H 143/82 H 140/80 H Pulse Oximetry 100 98 98 Oxygen Delivery Method Room Air Room Air 06/24/23 07:32 Temperature 97.7 F Pulse Rate 72 Respiratory Rate 16 Blood Pressure 119/67 Pulse Oximetry 97 Oxygen Delivery Method Room Air BMI result Body Mass Index 35.5 Const Other: The patient is a large 37-year-old male who looked very uncomfortable. HENMT Other: Face is symmetrical. Mucous membranes moist Eyes Other: Pupils are round equal, conjunctivae are clear Neck Other: Moving his neck easily Resp Effort & Inspection: normal respiratory effort Auscultation: clear to auscultation bilaterally Cardio Rate: regular rate Rhythm: regular rhythm Heart sounds: S1 normal heart sound present and S2 normal heart sound present GI Other: The patient had no left-sided abdominal tenderness but had significant right-sided tenderness. Back/Spine/Pelvis Other: The patient has definite right-sided CVA percussion tenderness. No left-sided percussion tenderness Skin Other: Skin is dry and unremarkable Neuro Other: The patient is awake, alert, appropriate. Grossly neurologically intact. Extrem Other: No calf swelling or tenderness. Medications Administered Generic Name Dose Route Start Last Admin Trade Name Freq PRN Reason Stop Dose Admin Sodium Chloride 1,000 mls @ 999 mls/hr 06/24/23 07:30 06/24/23 07:34 Ns IV 06/24/23 08:30 999 mls/hr .Q1H1M JUSTIN Administration Discontinued Medications Generic Name Dose Route Start Last Admin Trade Name Freq PRN Reason Stop Dose Admin Droperidol 1.25 mg 06/24/23 05:42 06/24/23 05:49 Droperidol 5 Mg/2 Ml Vial IVPUSH 06/24/23 05:43 1.25 mg ONCE ONE Administration Sodium Chloride 1,000 mls @ 999 mls/hr 06/24/23 05:45 06/24/23 06:56 Ns IV 06/24/23 06:45 Infused .Q1H1M JUSTIN Infusion Ketorolac Tromethamine 15 mg 06/24/23 05:42 06/24/23 05:48 Ketorolac Tromethamine 15 Mg/Ml Vial IVPUSH 06/24/23 05:43 15 mg ONCE ONE Administration Morphine Sulfate 4 mg 06/24/23 07:22 06/24/23 07:29 Morphine Sulfate 4 Mg/Ml Cartridge IVPUSH 06/24/23 07:23 4 mg ONCE ONE Administration Protocol Medical Decision Making Medical Decision Making [facility] Narrative: The patient is a 37-year-old male with no history of kidney stones. He had gastric sleeve surgery a little over a month ago. He presents with acute right-sided pain that seems most suggestive of ureteral colic. He has right-sided CVA tenderness and no left-sided symptoms at all. The patient initially indicated he did not wish to receive any opioid pain medications. He was given a dose of ketorolac and droperidol and seemed to feel much much better. Urinalysis showed trace blood. White count is normal at 7.8 with a normal differential. Metabolic panel shows normal electrolytes, mild rise in creatinine to 1.3 from 0.9. The patient initially seemed to have remarkable relief with ketorolac and droperidol. He went for a noncontrast CT of the abdomen and pelvis to investigate for a presumed right-sided stone. The CT scan has been read as indicating mild right-sided hydronephrosis without definite stone seen. Patient had a return of his pain and he was once again extremely uncomfortable. This point he is willing to take opioids. He will be given morphine and additional fluids. Lab Data 06/24/23 05:14 06/24/23 05:14 Labs: Lab Results 06/24/23 06/24/23 Range/Units 05:14 06:35 WBC 7.8 (4.8-10.8) X10*3/uL RBC 5.66 (4.60-5.80) X10*6/uL Hgb 15.9 (14.0-18.0) g/dl Hct 47.6 (42.0-52.0) % MCV 84.1 (80.0-98.0) fL MCH 28.1 (27.0-33.0) pg MCHC 33.4 (31.0-36.0) g/dl RDW 14.0 (11.0-16.0) % Plt Count 169 (160-400) X10*3/uL MPV 13.3 H (9.4-12.4) fL Immature Gran % (Auto) 0.3 (0.0-0.4) % Neut % (Auto) 56.2 (45-73) % Lymph % (Auto) 30.1 (20-40) % [place] % (Auto) 10.7 (2-11) % Eos % (Auto) 2.3 (0-4) % Baso % (Auto) 0.4 (0-2) % Lymph # (Auto) 2.3 (1.2-4.9) X10*3/uL [place] # (Auto) 0.8 (0.1-1.2) X10*3/uL Eos # (Auto) 0.2 (0.0-0.4) X10*3/uL Baso # (Auto) 0.0 (0.0-0.2) X10*3/uL Abs Immat Gran (auto) 0.02 (0.00-0.03) X10*3/uL Absolute Neuts (auto) 4.4 (2.0-8.3) x10*3/uL Absolute Nucleated RBC 0.000 (0.0-0.012) X10*3/uL Nucleated RBC % (auto) 0.0 (0.0-0.2) /100WBC Sodium 141 (135-145) mmol/L Potassium 3.4 (3.3-5.1) mmol/L Chloride 99 (96-108) mmol/L Carbon Dioxide 24 (22-29) mmol/L Anion Gap 21 H (12-20) BUN 16 (9-16) mg/dL Creatinine 1.31 (0.5-1.4) mg/dL Estim Creat Clear Calc 106.7 Estimated GFR > 60 Random Glucose 112 (60-115) mg/dL Calcium 10.6 H D (8.4-10.2) mg/dL Total Bilirubin 1.2 H (0.0-1.0) mg/dL AST 33 (5-37) U/L ALT 54 H (0-40) U/L Alkaline Phosphatase 70 (39-117) U/L Total Protein 8.1 H (6.5-8.0) g/dL Albumin 4.9 (3.5-5.0) g/dL Urine Color Yellow Urine Appearance Clear Urine pH 6.5 (5.0-9.0) Ur Specific [place] >= 1.030 H (1.005-1.025) Urine Protein 100 (2+) H (Neg-Trace) mg/dL Urine Glucose (UA) Negative (Negative) mg/dL Urine Ketones >=80 (Negative) mg/dL Urine Blood Trace (Negative) Urine Nitrite Negative (Negative) Ur Leukocyte Esterase Negative (Negative) Urine RBC 3-5 H (0-2) /HPF Urine WBC 0-5 (0-5) /HPF Ur Squamous Epith Cells 3-5 (0-2) /HPF Calcium Oxalate Crystal Present Urine Bacteria None Seen (None Seen) Hyaline Casts 3-5 (0-2) /LPF Discharge Plan Discharge Clinical Impression: Ureterolithiasis Patient Disposition: Home, Self-Care Instructions: Kidney Stones (ED) Additional Instructions: your CT scan shows that your R ureter is dilated and your urine has some blood and crystals in it. There is not stone left in the ureter this is concerning that you passed a stone. You will likely experience some leftover pain today. Return for fevers, vomiting, inability to urinate, or any other concerns. stay hydrated CT/CT abdomen pelvis wo IV con IMPRESSION: * Mild right hydronephrosis is noted. However, the cause of this is uncertain. No evidence of any urinary tract stone. Consider possibility that the patient has recently passed a small ureteral stone. Alternatively, if the patient has fever and leukocytosis in addition to the right-sided flank pain, then the possibility of urinary tract infection would be considered. * Diffuse hepatic steatosis. * Prior gastric sleeve procedure. Prescriptions: No Action sucralfate 100 mg/mL suspension 10 ml PO BID 30 Days Qty: 600 2RF Rx Instructions: 90-day supply pantoprazole 40 mg tablet,delayed release (DR/EC) 40 mg PO DAILY Qty: 30 2RF Referrals: Adrian Silva MD [Physician] - (call to follow up as needed in future - urology ) Stand Alone Forms: Work/School Release
[2023-06-24] MEDS: Morphine Sulfate 4 MG/ML CARTRIDGE IVPUSH (07:29)
[2023-06-24 07:30] LABS: Bacteria Urine None Seen (None Seen); Calcium Oxalate Crystals Urine Present; WBC Urine 0-5 /HPF (0-5)
[2023-06-24 07:32] VITALS: BP 119/67; PULSE 72; RESP 16; TEMP 36.5; O2SAT 97
--- NOTE | 2023-06-24 07:58 | PC.NURSE ---
remains alert and oriented, respirations even and unlabored. medicated per the MAR for pain, second liter of fluids infusing. continues to ambulate independently to the bathroom.
[2023-06-24 08:13] VITALS: BP 114/62; PULSE 75; RESP 16; TEMP 36.8; O2SAT 99
== END 2023-06-24 08:30 | disposition home or self-care (01) ==
PROVIDERS: Emergency Provider Emergency Medicine; PCP Internal Medicine
DX: N13.2 Hydronephrosis with renal and ureteral calculous obstruction (principal); Z98.84 Bariatric surgery status
CPT/HCPCS: 36415; 74176; 80053; 81001; 81003; 85025; 96361; 96374; 96375; 99284; 99285; J1790; J1885; J2270

== ENCOUNTER 2023-06-30 10:14 | Outpatient (AMB) | payer OTHER, SELFPAY ==
--- NOTE | 2023-06-30 10:05 | MHC.OFFVISWM ---
Intake VS Expanded 06/30/23 10:24 Height 6 ft Weight 249 lb BMI 33.8 Intake Visit Reasons: (TELEPHONE ) PO LSG 05/19/23 Allergies Penicillins Allergy (Mild, Verified 05/08/23 09:53) Rash Medication List - Last Reconciled 06/30/23 by TELLO Palmer morphine 15 mg PO Q6H PRN ondansetron 4 mg PO Q8H PRN pantoprazole 40 mg PO DAILY sucralfate 10 mL PO BID 30 days HPI HPI Comments History of Present Illness Details This?is a?37?yo male who is s/p LSG 05/19/2023. Presents for 5 week post op visit. Weight at last visit on 05/27/2023 was 287.2 pounds with a BMI of 38.9, weight today is 249 pounds, representing a 38.2 pound weight loss with a BMI today of 33.9.? No complaints of nausea, emesis, abdominal pain or reflux, or constipation. Present meal plan includes: 8-10am and 11-2pm Isopure 1 scoop in 8oz water 1-3 ZP bar 4-6pm Isopure 1 scoop in 8oz water 6:30-8:30pm ZP bar started MVI Exercise routine includes: burning 2000 calories a week on treadmill PFSH Medical History Obesity Morbid obesity Surgical History History of eye surgery Hx of appendectomy Family History Mother Hypertension Father Hypertension Son No problems noted. Son Asthma Daughter Asthma Social History Household Members: Spouse Housing: House Are you a primary director of health care marketing to a significant other at home: No Do you presently have visiting nurse or other home services: No Alcohol intake: current Alcohol intake frequency: holidays/special occasions only Patient Tobacco Use Status: Never used Tobacco service: No Assessment & Plan Assessment & Plan (1) S/P laparoscopic sleeve gastrectomy: Code(s): Z98.84 - Bariatric surgery status (2) Obesity: Code(s): E66.9 - Obesity, unspecified Qualifiers: Obesity type: due to excess calories Obesity classification: adult class 2 (BMI 35 - 39.9) Serious obesity comorbidity presence: with serious comorbidity Body mass index: BMI 39.0-39.9 Qualified Code(s): E66.01 - Morbid (severe) obesity due to excess calories; Z68.39 - Body mass index [BMI] 39.0-39.9, adult Plan Pt texted his weight to Dr Easley this morning and is awaiting changes to meal plan; hoping to start some solid food today. Overall he is doing very well, no evidence of postop complications or difficulty with PO tolerance. He is now 6 weeks out from surgery, all restrictions lifted for physical activity. RTC 1 month. Patient is obese and is not considered stable at this time. I spent a total of 30 minutes reviewing/updating records, examining the patient and counseling the patient on weight management as detailed above. Telehealth Telehealth Location of provider rendering services: other Location of patient: address on file Patient Identification confirmed using: Name, : Yes Telehealth method: voice only Patient verbally consented to treatment: Yes Patient verbally consented to billing insurance company: Yes Patient informed of any privacy concerns related to visit: Yes Minutes spent on Phone/Video with Pt.: 15 Coding Level of Care Code Tele Est Pt Level 4 (82737) Diagnoses S/P laparoscopic sleeve gastrectomy Z98.84 Class 2 severe obesity due to excess calories with serious comorbidity and body mass index (BMI) of 39.0 to 39.9 in adult E66.01; Z68.39 Obesity type: due to excess calories Obesity classification: adult class 2 (BMI 35 - 39.9) Serious obesity comorbidity presence: with serious comorbidity Body mass index: BMI 39.0-39.9
[2023-06-30 10:24] VITALS: BMI 33.8
== END 2023-06-30 10:26 | disposition home or self-care (01) ==
LOC: HO.HBS 10:14
PROVIDERS: PCP Internal Medicine; Visit Provider Physician Assistant Surgical
DX: E66.01 Morbid (severe) obesity due to excess calories (principal); Z68.33 Body mass index [BMI] 33.0-33.9, adult; Z90.3 Acquired absence of stomach [part of]; Z98.84 Bariatric surgery status
CPT/HCPCS: 99024

== ENCOUNTER → 2023-06-30 10:14 | Outpatient (BNVA) | payer OTHER, SELFPAY | PROVIDERS: PCP Internal Medicine; Visit Provider Physician Assistant Surgical ==

== ENCOUNTER 2023-08-06 10:22 | Outpatient (AMB) | payer OTHER, SELFPAY ==
--- NOTE | 2023-08-06 10:06 | MHC.OFFVISWM ---
Intake VS Expanded 08/06/23 10:12 Height 6 ft Weight 225 lb BMI 30.5 Intake Visit Reasons: PO LSG 05/19/23 Allergies Penicillins Allergy (Mild, Verified 05/08/23 09:53) Rash Medication List - Last Reconciled 08/06/23 by TELLO Palmer morphine 15 mg PO Q6H PRN ondansetron 4 mg PO Q8H PRN pantoprazole 40 mg PO DAILY sucralfate 10 mL PO BID 30 days HPI HPI Comments History of Present Illness Details This?is a?37?yo male who is s/p LSG 05/19/2023. Presents for 2.5 month post op visit. Weight at last visit on 06/30/2023 was 249 pounds with a BMI of 33.8, weight today is 225 pounds, representing a 24 pound weight loss with a BMI today of 30.5.? No complaints of nausea, emesis, abdominal pain or reflux, or constipation. Present meal plan includes: 2 shakes- 1 scoop in one shake, 1/2 scoop in second shake- Iso 4 forks protein, 4 forks veg All meals last 20 - 30 minutes and does not drink and eat at the same time. Exercise routine includes: jogging 3-4x/week, 5 miles each time; on days he does not run, does plyometrics/strength training PFSH Medical History Obesity Morbid obesity Surgical History History of eye surgery Hx of appendectomy Family History Mother Hypertension Father Hypertension Son No problems noted. Son Asthma Daughter Asthma Social History Household Members: Spouse Housing: House Are you a primary patient care provider to a significant other at home: No Do you presently have visiting nurse or other home services: No Alcohol intake: current Alcohol intake frequency: holidays/special occasions only Patient Tobacco Use Status: Never used Tobacco service: No Assessment & Plan Assessment & Plan (1) S/P laparoscopic sleeve gastrectomy: Code(s): Z98.84 - Bariatric surgery status (2) Obesity: Code(s): E66.9 - Obesity, unspecified Qualifiers: Obesity type: due to excess calories Obesity classification: adult class 2 (BMI 35 - 39.9) Serious obesity comorbidity presence: with serious comorbidity Body mass index: BMI 39.0-39.9 Qualified Code(s): E66.01 - Morbid (severe) obesity due to excess calories; Z68.39 - Body mass index [BMI] 39.0-39.9, adult Plan Pt to continue same meal plan and exercise regimen as noted above. Doing well with 99lbs weight loss since starting program, no surgical complications. Congratulated pt on his excellent progress so far. Per pt Dr. Easley will adjust meal plan again once pt reaches 215lbs. Discussed once PPI and carafate run out pt does not need additional refills. Telehealth Telehealth Location of provider rendering services: practice address Location of patient: address on file Patient Identification confirmed using: Name, : Yes Telehealth method: voice only Patient verbally consented to treatment: Yes Patient verbally consented to billing insurance company: Yes Patient informed of any privacy concerns related to visit: Yes Minutes spent on Phone/Video with Pt.: 12 Coding Level of Care Code Tele New Pt Level 4 (76623) Diagnoses S/P laparoscopic sleeve gastrectomy Z98.84 Class 2 severe obesity due to excess calories with serious comorbidity and body mass index (BMI) of 39.0 to 39.9 in adult E66.01; Z68.39 Obesity type: due to excess calories Obesity classification: adult class 2 (BMI 35 - 39.9) Serious obesity comorbidity presence: with serious comorbidity Body mass index: BMI 39.0-39.9
[2023-08-06 10:12] VITALS: BMI 30.5
== END 2023-08-06 10:29 | disposition home or self-care (01) ==
LOC: HO.HBS 10:22
PROVIDERS: PCP Internal Medicine; Visit Provider Physician Assistant Surgical
DX: E66.01 Morbid (severe) obesity due to excess calories (principal); Z68.39 Body mass index [BMI] 39.0-39.9, adult; Z90.3 Acquired absence of stomach [part of]; Z98.84 Bariatric surgery status
CPT/HCPCS: 99024

== ENCOUNTER → 2023-08-06 10:22 | Outpatient (BNVA) | payer OTHER, SELFPAY | PROVIDERS: PCP Internal Medicine; Visit Provider Physician Assistant Surgical | DX: Z98.84 Bariatric surgery status (principal); E66.01 Morbid (severe) obesity due to excess calories; Z68.39 Body mass index [BMI] 39.0-39.9, adult ==

== ENCOUNTER 2023-09-17 10:49 | Outpatient (AMB) | payer OTHER, SELFPAY ==
--- NOTE | 2023-09-17 10:32 | A.OFFVIS_ITS ---
VS Expanded 09/17/23 10:37 Height 6 ft Weight 205 lb BMI 27.8 Intake Visit Reasons: TELEPHONE PO LSG 05/19/23 Allergies Penicillins Allergy (Mild, Verified 05/08/23 09:53) Rash Medication List - Last Reconciled 09/17/23 by TELLO Palmer morphine 15 mg PO Q6H PRN multivitamin 1 tab PO DAILY HPI Comments Details: This?is a?38?yo male who is s/p LSG 05/19/2023. Presents for 4 month post op visit. Weight at last visit on 08/06/2023 was 225 pounds with a BMI of 30.5, weight today is 205 pounds, representing a 20 pound weight loss with a BMI today of 27.8.? No complaints of nausea, emesis, abdominal pain or reflux, or co nstipation. Present meal plan includes: 2 shakes- 1 scoop in one shake, 1/2 scoop in second shake- Iso 2 ZP bars 4 forks protein (chicken, fish, beef, pork), 4 forks veg All meals last 20 - 30 minutes and does not drink and eat at the same time. Pt has been on this plan for about a month and a half. Exercise routine includes: jogging or walking 3-4x/week, 3-8 miles each time and uses incline; on days he does not run, does plyometrics/strength training, planning a 5K race [facility] Medical History Obesity Morbid obesity Surgical History History of eye surgery Hx of appendectomy Family History Mother Hypertension Father Hypertension Son No problems noted. Son Asthma Daughter Asthma Social History Household Members: Spouse Housing: House Are you a primary administrator health care facility to a significant other at home: No Do you presently have visiting nurse or other home services: No Alcohol intake: current Alcohol intake frequency: holidays/special occasions only Patient Tobacco Use Status: Never used Tobacco service: No Physical Exam Vital Signs: BMI result Body Mass Index 27.8 Telehealth Telehealth Telehealth Platform: Telephone Location of provider rendering services: practice address Location of patient: address on file Patient Identification confirmed using: Name, : Yes Telehealth method: voice only Patient verbally consented to treatment: Yes Patient verbally consented to billing insurance company: Yes Patient informed of any privacy concerns related to visit: Yes Minutes spent on Phone/Video with Pt.: 12 Assessment & Plan Assessment & Plan (1) Overweight: Code(s): E66.3 - Overweight Category: Medical (2) S/P laparoscopic sleeve gastrectomy: Code(s): Z98.84 - Bariatric surgery status Category: Surgical Plan Pt is doing extremely well with weight loss, has a solid meal plan and exercise regimen. Congratulated him on his success so far. Ultimately he would like to end up around 196lbs. Continue MVI, will check labs at 6 months. RTC 2 months. Pt texts weekly with Dr. Raymundo Patient is overweight and is not considered stable at this time. I spent a total of 30 minutes reviewing/updating records, examining the patient and counseling the patient on weight management as detailed above.
[2023-09-17 10:37] VITALS: BMI 27.8
== END 2023-09-17 10:57 | disposition home or self-care (01) ==
LOC: HO.HBS 10:49
PROVIDERS: PCP Internal Medicine; Visit Provider Physician Assistant Surgical
DX: E66.3 Overweight (principal); Z98.84 Bariatric surgery status
CPT/HCPCS: 99214

== ENCOUNTER → 2023-09-17 10:49 | Outpatient (BNVA) | payer OTHER, SELFPAY | PROVIDERS: PCP Internal Medicine; Visit Provider Physician Assistant Surgical ==

== ENCOUNTER 2023-11-25 05:58 | Outpatient (REF) | payer OTHER, SELFPAY ==
[2023-11-25 06:20] LABS: MANUAL DIFF FLAG NO
[2023-11-25 08:08] LABS: Basophils Percent Auto 0.7 % (0-2); Eosinophils Absolute Auto 0.4 X10*3/uL (0.0-0.4); Eosinophils Percent Auto 6.7 % (0-4); Estimated Average Glucose 108 mg/dL; Hematocrit 46.3 % (42.0-52.0); Hemoglobin A1c % 5.4 % (<6.0); Imm Gran Abs Auto 0.01 X10*3/uL (0.00-0.03); Imm Gran Pct Auto 0.2 % (0.0-0.4); Lymphocytes Absolute Auto 2.6 X10*3/uL (1.2-4.9); Lymphocytes Percent Auto 43.8 % (20-40); Mean Corpuscular HGB Conc 32.4 g/dl (31.0-36.0); Mean Corpuscular Hemoglobin 28.8 pg (27.0-33.0); Mean Platelet Volume 14.3 fL (9.4-12.4); Monocytes Absolute Auto 0.7 X10*3/uL (0.1-1.2); Neutrophils Absolute Auto 2.1 x10*3/uL (2.0-8.3); Neutrophils Percent Auto 36.6 % (45-73); Platelet Count 159 X10*3/uL (160-400); Red Cell Distribution Width 13.5 % (11.0-16.0); White Blood Count 5.8 X10*3/uL (4.8-10.8)
[2023-11-25 08:35] LABS: Alanine Aminotransferase 22 U/L (0-40); Albumin Level 4.4 g/dL (3.5-5.0); Alkaline Phosphatase 54 U/L (39-117); Anion Gap 14 (12-20); Aspartate Amino Transferase 42 U/L (5-37); Bilirubin Total 1.1 mg/dL (0.0-1.0); Blood Urea Nitrogen 14 mg/dL (9-16); C Reactive Protein 0.48 mg/dL (< or = 0.50); Calcium 10.1 mg/dL (8.4-10.2); Carbon Dioxide 30 mmol/L (22-29); Chloride 100 mmol/L (96-108); Cholesterol 200 mg/dL (<200); Estimated Glomerular Filt Rate > 60; Glucose Random 85 mg/dL (60-115); HDL Cholesterol 46 mg/dL (>40); Iron 71 mcg/dL (45-160); LDL Cholesterol Calculated 140 mg/dL (<100); Percent Iron Saturation 35 % (15-50); Potassium 4.9 mmol/L (3.3-5.1); Sodium 139 mmol/L (135-145); Total Iron Binding Capacity 202 mcg/dL (228-428); Total Protein 7.2 g/dL (6.5-8.0); Triglycerides 70 mg/dL (<150); Unsaturated Iron Binding 131 ug/dL
[2023-11-25 08:39] LABS: Ferritin 235 ng/mL (20-250); Insulin 7 uU/mL (2-29); TSH reflex Free T4 0.99 uIU/mL (0.32-4.0)
[2023-11-25 08:45] LABS: Folate 10.3 ng/mL (> or = 4.0); Vitamin B12 795 pg/mL (200-900)
[2023-11-28 09:08] LABS: Zinc 76 mcg/dL (60-130)
[2023-11-28 21:48] LABS: Vitamin A 29 mcg/dL (38-98)
[2023-12-02 22:13] LABS: Vitamin B1 22 nmol/L (8-30)
== END 2023-11-25 05:59 | disposition home or self-care (01) ==
LOC: HO.LAB 05:58
PROVIDERS: PCP Internal Medicine; Visit Provider Physician Assistant Surgical
DX: Z98.84 Bariatric surgery status (principal); Z13.1 Encounter for screening for diabetes mellitus
CPT/HCPCS: 36415; 80053; 80061; 82306; 82607; 82728; 82746; 83036; 83525; 83540; 84425; 84443; 84590; 84630; 85025; 86140

== ENCOUNTER 2023-11-25 09:43 | Outpatient (AMB) | payer OTHER, SELFPAY ==
--- NOTE | 2023-11-25 09:39 | A.OFFVIS_ITS ---
VS Expanded 11/25/23 09:42 Height 6 ft Weight 186 lb BMI 25.2 Intake Visit Reasons: (TELEPHONE) PO LSG 05/19/23 Allergies Penicillins Allergy (Mild, Verified 05/08/23 09:53) Rash Medication List - Last Reconciled 11/25/23 by TELLO Palmer multivitamin 1 tab PO DAILY HPI Comments Details: This?is a?38?yo male who is s/p LSG 05/19/2023. Presents for 6 month post op visit. Weight at last visit on 09/17/2023 was 205 pounds with a BMI of 27.8, weight today is 186 pounds, representing a 19 pound weight loss with a BMI today of 25.2.? No complaints of nausea, emesis, abdominal pain or reflux, or constipation. Notes some tailbone pain when sitting, but otherwise no complaints. Present meal plan includes: 2 shakes- 1 scoop in one shake, 1/2 scoop in second shake- Iso 1 ZP bar 1 bag of pea crisps 4 forks protein (chicken, fish, beef, pork), 4 forks veg All meals last 20 - 30 minutes and does not drink and eat at the same time. takes Exercise routine includes: jogging or walking 3-4x/week, 3-8 miles each time and uses incline; on days he does not run, does plyometrics/strength training, planning a 5K race in January [facility] Medical History Obesity Morbid obesity Surgical History History of eye surgery Hx of appendectomy Family History Mother Hypertension Father Hypertension Son No problems noted. Son Asthma Daughter Asthma Social History Household Members: Spouse Housing: House Are you a primary managed care specialist to a significant other at home: No Do you presently have visiting nurse or other home services: No Alcohol intake: current Alcohol intake frequency: holidays/special occasions only Patient Tobacco Use Status: Never used Tobacco service: No Telehealth Telehealth Telehealth Platform: Telephone Location of provider rendering services: practice address Location of patient: address on file Patient Identification confirmed using: Name, : Yes Telehealth method: voice only Patient verbally consented to treatment: Yes Patient verbally consented to billing insurance company: Yes Patient informed of any privacy concerns related to visit: Yes Minutes spent on Phone/Video with Pt.: 12 Assessment & Plan Assessment & Plan (1) Overweight: Code(s): E66.3 - Overweight Category: Medical (2) S/P laparoscopic sleeve gastrectomy: Code(s): Z98.84 - Bariatric surgery status Category: Surgical Plan Labs reviewed, some vitamin levels still pending. Pt to continue current meal plan, exercise regimen. Congratulated him on his excellent weight loss. RTC 3 months. I spent a total of 30 minutes reviewing/updating records, examining the patient and counseling the patient on weight management as detailed above.
[2023-11-25 09:42] VITALS: BMI 25.2
== END 2023-11-25 09:55 | disposition home or self-care (01) ==
LOC: HO.HBS 09:43
PROVIDERS: PCP Internal Medicine; Visit Provider Physician Assistant Surgical
DX: E66.3 Overweight (principal); Z98.84 Bariatric surgery status
CPT/HCPCS: 99214

== ENCOUNTER 2024-02-22 10:34 | Outpatient (AMB) | payer OTHER, SELFPAY ==
--- NOTE | 2024-02-22 10:32 | MHC.OFFVISWM ---
VS Expanded 02/22/24 10:34 Height 6 ft Weight 176 lb 8 oz BMI 23.9 Intake Visit Reasons: TELEPHONE PO LSG 05/19/23 Allergies Penicillins Allergy (Mild, Verified 05/08/23 09:53) Rash Medication List - Last Reconciled 02/22/24 by TELLO Palmer multivitamin 1 tab PO DAILY vitamin A palmitate 10,000 units PO DAILY HPI Comments Details: This?is a?38?yo male who is s/p LSG 05/19/2023. Presents for 9 month post op visit. Weight at last visit on 11/25/2023 was 186 pounds with a BMI of 25.2, weight today is 176.5 pounds, representing a 9.5 pound weight loss with a BMI today of 23.9.? No complaints of nausea, emesis, abdominal pain or reflux, or constipation. Present meal plan includes: 2 shakes- 1 scoop in one shake, 1/2 scoop in second shake- Iso 1 ZP bar 1 bag of pea crisps (12g) 4 forks protein (chicken, fish, beef, pork), 4 forks veg Exercise routine includes: jogging or walking 3-4x/week, 3-8 miles each time and uses incline; on days he does not run, does plyometrics/strength training FORMERLY [facility], [facility]1983 Medical History Obesity Morbid obesity Surgical History History of eye surgery Hx of appendectomy Family History Mother Hypertension Father Hypertension Son No problems noted. Son Asthma Daughter Asthma Social History Household Members: Spouse Housing: House Are you a primary medicare insurance specialist to a significant other at home: No Do you presently have visiting nurse or other home services: No Alcohol intake: current Alcohol intake frequency: holidays/special occasions only Patient Tobacco Use Status: Never used Tobacco service: No Telehealth Telehealth Telehealth Platform: Telephone Location of provider rendering services: practice address Location of patient: address on file Patient Identification confirmed using: Name, : Yes Telehealth method: voice only Patient verbally consented to treatment: Yes Patient verbally consented to billing insurance company: Yes Patient informed of any privacy concerns related to visit: Yes Minutes spent on Phone/Video with Pt.: 15 Assessment & Plan Assessment & Plan (1) S/P laparoscopic sleeve gastrectomy: Code(s): Z98.84 - Bariatric surgery status Category: Surgical Plan Goal 80g protein/day. Pt will incorporate half a protein bar or pea crisps in evening to increase protein to goal. Can also add 1 serving healthy fat- pt liked the idea of a quarter avocado with his meal, can make guacamole. Pt will trend his weight closely over the next few weeks to monitor weight changes. RTC 3 months, sent him my phone # and encouraged him to text me with any questions. I spent a total of 30 minutes reviewing/updating records, examining the patient and counseling the patient on weight management as detailed above.
[2024-02-22 10:34] VITALS: BMI 23.9
== END 2024-02-22 10:47 | disposition home or self-care (01) ==
LOC: HO.HBS 10:34
PROVIDERS: PCP Internal Medicine; Visit Provider Physician Assistant Surgical
DX: Z71.3 Dietary counseling and surveillance (principal); Z90.3 Acquired absence of stomach [part of]; Z98.84 Bariatric surgery status
CPT/HCPCS: 99214

== ENCOUNTER → 2024-02-22 10:34 | Outpatient (BNVA) | payer OTHER, SELFPAY | PROVIDERS: PCP Internal Medicine; Visit Provider Physician Assistant Surgical ==

== ENCOUNTER 2024-05-24 12:45 | Outpatient (AMB) | payer OTHER, SELFPAY ==
--- NOTE | 2024-05-24 12:34 | MHC.OFFVISWM ---
VS Expanded 05/24/24 12:38 Height 6 ft Weight 176 lb BMI 23.9 Intake Visit Reasons: TELEPHONE PO LSG 05-19-23 Allergies Penicillins Allergy (Mild, Verified 05/08/23 09:53) Rash Medication List - Last Reconciled 05/24/24 by TELLO Palmer multivitamin 1 tab PO DAILY vitamin A palmitate 10,000 units PO DAILY HPI Comments Details: This?is a?38 yo male who is s/p LSG 05/19/2023. Presents for 1 year post op visit. Weight at last visit on 02/22/2024 was 176.8 pounds, weight same today.? No complaints of nausea, emesis, abdominal pain or reflux, or constipation. Present meal plan includes: 2 shakes- 1 scoop in one shake, 1/2 scoop in second shake- Iso 1 ZP bar 1 bag of pea crisps (12g) 4 forks protein (chicken, fish, beef, pork), 4 forks veg, 1 serving healthy fat half bar or pea crisps Exercise routine includes: jogging or walking 3-4x/week, 3-8 miles each time and uses incline; on days he does not run, does plyometrics/strength training Have you been diagnosed with reflux (GERD)? no Score 0-5: 0=no symptoms, 1=noticeable but not bothersome (slight or occasional), 2=noticeable, bothersome but not daily, 3=bothersome and daily, 4=affects daily activities, 5=incapacitating, unable to do daily activities How bad is the heartburn: 0 Heartburn when lying down: 0 Heartburn when standing up: 0 Heartburn after meals: 0 Does heartburn change your diet: 0 Does heartburn wake you up from sleep: 0 Do you have difficulty swallowin Do you have pain with swallowin If you take medication for reflux, does this affect your daily life: 0 Total score: 0 PFSH Medical History Obesity Morbid obesity Surgical History History of eye surgery Hx of appendectomy Family History Mother Hypertension Father Hypertension Son No problems noted. Son Asthma Daughter Asthma Social History Household Members: Spouse Housing: House Are you a primary foster care worker to a significant other at home: No Do you presently have visiting nurse or other home services: No Alcohol intake: current Alcohol intake frequency: holidays/special occasions only Patient Tobacco Use Status: Never used Tobacco service: No Physical Exam Vital Signs: BMI result Body Mass Index 23.9 Telehealth Telehealth Telehealth Platform: Telephone Location of provider rendering services: practice address Location of patient: address on file Patient Identification confirmed using: Name, : Yes Telehealth method: voice only Patient verbally consented to treatment: Yes Patient verbally consented to billing insurance company: Yes Patient informed of any privacy concerns related to visit: Yes Minutes spent on Phone/Video with Pt.: 12 Assessment & Plan Assessment & Plan (1) S/P laparoscopic sleeve gastrectomy: Code(s): Z98.84 - Bariatric surgery status Category: Surgical Plan Pt has maintained weight on current meal plan and does not want to make any changes. TBWL 45.7%. Congratulated pt on his success achieving and maintaining a healthy weight. Annual labs ordered. RTC 3mo per pt preference. I spent a total of 30 minutes reviewing/updating records, examining the patient and counseling the patient on weight management as detailed above. Orders: Orders Insulin Today Z98.84 - Bariatric surgery status Hemoglobin A1c Today Z98.84 - Bariatric surgery status Complete Blood Count Auto Diff Today Z98.84 - Bariatric surgery status Lipid Panel Today Z98.84 - Bariatric surgery status Comprehensive Met. Panel Today Z98.84 - Bariatric surgery status Vitamin B12 and Folate Today Z98.84 - Bariatric surgery status TSH reflex Free T4 Today Z98.84 - Bariatric surgery status Ferritin Today Z98.84 - Bariatric surgery status IRON PROFILE Today Z98.84 - Bariatric surgery status Zinc Today Z98.84 - Bariatric surgery status C Reactive Protein Today Z98.84 - Bariatric surgery status Vitamin B1 Today Z98.84 - Bariatric surgery status Vitamin A Today Z98.84 - Bariatric surgery status Vitamin D 25-OH Total Today Z98.84 - Bariatric surgery status
[2024-05-24 12:38] VITALS: BMI 23.9
--- OUTSIDE RECORDS SUMMARY | 2024-05-24 14:47 | XMS_ITS | Continuity of Care Document ---
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 It does not include entries that were removed or entered in error. 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) Active Condition [facility] visit for: physical medical evaluation board (MEB) Active Condition [facility] post-traumatic stress disorder Active Condition [facility] claustrophobia Active Condition DoD major depression, single episode moderate Active Condition [facility] visit for: services physical senior care Inactive Condition [facility] visit for: screening exam pulmonary tuberculosis Inactive Condition [facility] psychoses Inactive Condition [facility] difficulty breathing (dyspnea) Inactive Condition [facility] vargas splint Inactive Condition [facility] ganglion right foot 2nd MTP joint Active Condition [facility] visit for: ears / hearing exam Inactive Condition [facility] personality disorder Active Condition [facility] panic disorder with agoraphobia Active Condition [facility] Observation For Suspected Mental Condition Inactive Condition [facility] visit for: administrative purpose Inactive Condition [facility] Preventive Medicine Established Patient Checkup Adult 18-39 Years Inactive Condition [facility] visit for: routine eye exam Inactive Condition [facility] visit for: occupational health / fitness exam Inactive Condition [facility] Allergy Sensitivity Testing Inactive Condition [facility] Need For Vaccination Hepatitis B Inactive Condition [facility] Need For Vaccination Hepatitis A Inactive Condition [facility] visit for: refer patient without exam or treatment Inactive Condition [facility] atypical chest pain Inactive Condition Pt presents wit h symptoms very atypical for a cardiac etiology with reproduction of symptoms on treadmill testing as well as during probe manipulation for transthoracic echo. Lack of ecg findings on treadmill with symptoms makes ischemia low likelihood and given reproduction of symptoms during echo, strongly suspect a musculoskeletal etiology. However, given long-term duty status issues and duration of symptoms, will confirm my clinical suspicions with a stress echo to definitively rule-out ischemic heart disease. Plan for stress echo on 01/13/08. In the interim, I have advised pt to resume a regular exercise regimen as tolerated. He can take analgesics such as Tylenol or Motrin for what is highly likely to be musculoskeletal chest pain. Ok for pt to resume regular exercise regimen as tolerated until stress echo. Plan routine f/u after stress echo. If normal, no further cardiac evaluation needed. [facility] Need For Vaccination Against Influenza Inactive Condition [facility] astigmatism Active Condition [facility] refractive error - myopia Active Condition [facility] corneal scar right eye Inactive Condition 2.0mm x 0.5mm horizontal subeipthelial scar inferior to pupil OD. EPTE. NCD. [facility] astigmatism regular Inactive Condition SRx per manifes t refraction. Pt preferred over habitual. Ed pt re: two week adaptation. [facility] visit for: services physical Inactive Condition [facility] Allergies, Adverse Reactions, Alerts Combined list of allergies from Department of Defense and Veterans Affairs facilities. It does not include entries that were removed or entered in error. Substance Category Reaction Severity Reaction type Status Date Reported Comments Source PEN G NAYE/PEN G PROCAINE (PEN G NAYE/PEN G PROCAINE) Drug allergy (disorder) Unknown active 7 [facility] PENICILLIN Propensity to adverse reactions to drug (finding) active 3 [facility] PENICILLIN-G RELATED PENICILLINS Drug allergy (disorder) active 3 [facility] PENICILLINS Drug allergy (disorder) Unknown active 7 Tyler Rossi [facility] Immunizations Combined list of available immunizations from the Department of Defense and Veterans Affairs facilities. Immunization Series Date Given Administered By Site Reaction Lot Number CVX Code Drug Account Manager Relief Status Comments Source INFLUENZA, UNSPECIFIED FORMULATION 2013 88 complet ed [id number] EX 11/14/2013 Syringe, Injection in left deltoid. 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 (MED) complet ed influenza virus vaccine, live, attenuate d, for intranasa l use DoD influenza virus vaccine, live, attenuated, for intranasal use 1 2006 GODFREY SANDRA [id number] 111 [employer] (MED) complet ed influenza virus vaccine, live, attenuate d, for intranasa l use DoD hepatitis A and hepatitis B vaccine 2 2006 UNK 104 Unknown (UNK) comple t ed hepatitis A and hepatitis B vaccine DoD measles, mumps and rubella virus vaccine 0 2006 UNK 03 Unknown (UNK) comple t ed measles, mumps and rubella virus vaccine DoD tetanus and diphtheria toxoids, adsorbed, preservative free, for adult use (2 Lf of tetanus toxoid and 2 Lf of diphtheria toxoid) 0 2006 UNK 09 Unknown (UNK) comple t ed tetanus and diphtheri a toxoids, adsorbed, preservat stephanie free, for adult use (2 Lf of tetanus toxoid and 2 Lf of diphtheri a toxoid) DoD poliovirus vaccine, inactivated 0 2006 UNK 10 Unknown (UNK) comple t ed polioviru s vaccine, inactivat ed DoD influenza virus vaccine, unspecified formulation 0 2006 UNK 88 Unknown (UNK) comple t ed influenza virus vaccine, unspecifi ed formulati on DoD hepatitis A and hepatitis B vaccine 1 2006 UNK 104 Unknown (UNK) comple t ed hepatitis A and hepatitis B vaccine DoD Encounters Combined list of: 1) Encounters from Department of Veterans Affairs facilities going back up to thelast 18 months. 2) Encounters from the Department of Defense facilities going back up to 280 months. 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 screen ROSHANCHRISTOPHERDEBORAH Lorna 06/26 Released w/o Limitations [facility]( Optomet ry [facility] 1523) [facility]([place] [id number] NEEDS A FITTING FOR CL GABRIELE SPAULDING M 09/28 Released w/o Limitations [facility]( [place] [facility]) [place] [id number] Flumist GODFREY SANDRA 04/21 Released w/o Limitations [facility]( [place] [facility]) [place] [id number] ref to cardiol NIRMAL Irwin 11/07 Released w/o Limitations [facility]( [place]) [facility] [id number] Needs Ref renewed to cardiol SINAN Hammond 12/12 Released w/o Limitations [facility] [facility](Ca rdiology Clinic [place]) OUTPATIENT [id number] chest palpita tion, left sided chest pain BISI ADRIAN S 12/20 Released w/o Limitations [facility]( Cardiol ogy Clinic [facility]) [facility] [id number] flu mist TERA MANUEL 03/15 Released w/o Limitations [facility]( [place] [facility]) [place] [id number] Prelimi michael visit for PHA. 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 ng TONYLYNDSAY STOLL NMI 08/10 Released w/o Limitations [facility]( [place] [facility] DIRECT TO [facility] FROM OTHER THAN ER OR APU [id number] AGUSTÍN RUANO Robin 12/04 RETURNED TO DUTY [facility](Audiolo gy [facility]) OUTPATIENT [id number] JOHN PANDA 02/22 Released w/o Limitations [facility](Aud iology [facility]) [facility](ALF [facility] FP) OUTPATIENT [id number] medboar d MIKAELA Mayorga 03/09 Released w/o Limitations [facility](ALF [facility] FP) [facility] ER, DIRECT TO [facility] [id number] CHONKENMIKKI JENNIFER 04/02 RETURNED TO DUTY [facility](Immuniz ation NM[facility]) OUTPATIENT [id number] TPU [employer] FLU MIST GINA VILLELA 04/17 Released w/o Limitations [facility](Imm unizati on NMCP) [facility](Immuniz ations [facility] [employer]) OUTPATIENT [id number] ppd/h1n 1 CARLOS EDUARDO MARMOLEJO 06/19 Released w/o Limitations [facility](Imm unizati ons [facility] [employer] ) [facility] [place] [facility] [id number] TPU CHELSEA JACOB 06/27 Released w/o Limitations [facility](Phy s Exam [place] [facility]) Procedures Combined list of: 1) Procedures from Department of Veterans Affairs facilities going back up to thelast 18 months, not all VA non-surgical procedures are included; 2) All procedures from the Department of Defense facilities. Procedure Procedure Type Code Date Perfomer Comments Sour e Psychiatric Diagnostic Evaluation Review of Records and Reports Psychiatric Diagnostic Evaluation Review of Records and Reports [id number] 2010 TINA HART [facility] Psychiatric Therapy Preparation of Psychiatric Status Report Psychiatric Therapy Preparation of Psychiatric Status Report [id number] 2010 TINA HART [facility] Psychiatric Diagnostic Evaluation Review of Records and Reports Psychiatric Diagnostic Evaluation Review of Records and Reports 79953 2010 NICOLA WILSON [facility] Psychologic Testing And Report Administered By Physician Psychologic Testing And Report Administered By Physician 94599 2010 NICOLA WILSON MMPI-2-RF Test interpretation Start time 1200 end time 1220 [facility] Dangerousterrance white Suicide Risk Dangerousness Assessment Suicide Risk 3085F 2010 NICOLA WILSON Patient determined to be a low risk of self harm [facility] Psychiatric Diagnostic Evaluation Comprehensive Examination Psychiatric Diagnostic Evaluation Comprehensive Examination 50797 2010 NICOLA WILSON Start time 1230 end time 1345 [facility] Psychiatric Diagnostic Evaluation Review of Records and Reports Psychiatric Diagnostic Evaluation Review of Records and Reports 22352 2010 SENG ALARCON [facility] Health And Behavior Intervention, Each Additional 15 Minutes Individual Health And Behavior Intervention, Each Additional 15 Minutes Individual 12281 2009 MAKENZIE PEÑA [facility] Psychotherapy Individual Approximately 45 Minutes Psychotherapy Individual Approximately 45 Minutes 25952 2009 KAREEN RENTERIA [facility] Psychotherapy Group Interactive Psychotherapy Group Interactive 86582 2009 LARRY MANLEY [facility] Influenza Virus Vaccine Pandemic Formulation Influenza Virus Vaccine Pandemic Formulation 81820 2009 CARLOS EDUARDO MARMOLEJO [facility] Immunization Administration By Injection, One Vaccine Immunization Administration By Injection, One Vaccine 50719 2009 CARLOS EDUARDO MARMOLEJO [facility] Skin Test Anergy Tuberculin Intradermal Skin Test Anergy Tuberculin Intradermal 64266 2009 CARLOS EDUARDO MARMOLEJO [facility] Health And Behavior Intervention, Each Additional 15 Minutes Individual Health And Behavior Intervention, Each Additional 15 Minutes Individual 07802 2009 MAKENZIE PEÑA [facility] Psychotherapy Group Interactive Psychotherapy Group Interactive 39578 2009 LARRY MANLEY [facility] Psychotherapy Group Interactive Psychotherapy Group Interactive 89692 2009 LARRY MANLEY [facility] Psychotherapy Group Interactive Psychotherapy Group Interactive 51484 2009 LARRY MANLEY Health And Behavior Intervention, Each Additional 15 Minutes Individual Health And Behavior Intervention, Each Additional 15 Minutes Individual 06908 2009 TYLER CLAYTON [facility] Psychiatric Diagnostic Evaluation Comprehensive Examination Psychiatric Diagnostic Evaluation Comprehensive Examination 39690 2009 KAEREN RENTERIA Influenza Virus Vaccine Intranasal Live Attenuated 2008 GINA V[place]LELA Immunization Administration By Injection, One Vaccine Immunization Administration By Injection, One Vaccine 59797 2008 GINA VILLELA Threshold Audiogram (Pure Tone) Threshold Audiogram (Pure Tone) 51133 2008 JOHN PANDA [employer] [facility] Fitting Monofocal Except For Aphakia [facility] [facility] Fitting Monofocal Except For Aphakia 44273 2008 TAVON HAIRSTON Determination Of Refractive State Determination Of Refractive State 88538 2008 TAVON HAIRSTON Ophthalmological Prior Patient Start Comprehensive Care Ophthalmological Prior Patient Start Comprehensive Care 65342 2008 TAVON HAIRSTON Hepatitis A And Hepatitis B (Intramuscular Use) Adult Dosage Hepatitis A And Hepatitis B (Intramuscular Use) Adult Dosage 65891 2008 HARRY PERKINS Skin Test Anergy tuberculin Skin Test Anergy tuberculin 86599 2008 HARRY PERKINS Electrocardiogram Electrocardiogram 61281 12/20 NGUYỄNBISI CRUZ Influenza Virus Vaccine Intranasal Live Attenuated 2006 GODFREY SANDRA Ophthalmological New Patient Start Intermediate Level Care Ophthalmological New Patient Start Intermediate Level Care 52223 2006 GABRIELE SPAULDING Determination Of Refractive State Determination Of Refractive State 00878 2006 GABRIELE SPAULDING [employer] [facility] Fitting Monofocal Except For Aphakia [employer] [facility] Fitting Monofocal Except For Aphakia 28177 2006 GABRIELE SPAULDING [employer] [facility] Fitting Monofocal Except For Aphakia [employer] [facility] Fitting Monofocal Except For Aphakia 03359 2006 DEBORAH QUIJANO Ophthalmological New Patient Start Comprehensive Care Ophthalmological New Patient Start Comprehensive Care 85621 2006 DEBORAH QUIJANO Determination Of Refractive State Determination Of Refractive State 46395 2006 DEBORAH QUIJANO Social History Combined list of available smoking, tobacco, and other social history from Department of Defense and Veterans Affairs facilities. Social History Type Response Date Comment Sour e Tobacco smoking status ILIS LIFETIME NON-USER OF TOBACCO 0 05/27/2013 [facility] This section is an empty social history section. [facility]D
== END 2024-05-24 12:56 | disposition home or self-care (01) ==
LOC: HO.HBS 12:45
PROVIDERS: PCP Internal Medicine; Visit Provider Physician Assistant Surgical
DX: Z71.3 Dietary counseling and surveillance (principal); Z90.3 Acquired absence of stomach [part of]; Z98.84 Bariatric surgery status
CPT/HCPCS: 98967

== ENCOUNTER 2024-08-11 08:41 | Outpatient (REF) | payer OTHER, SELFPAY ==
[2024-08-11 09:08] LABS: MANUAL DIFF FLAG NO
[2024-08-11 09:44] LABS: Basophils Percent Auto 0.6 % (0-2); Eosinophils Absolute Auto 0.3 X10*3/uL (0.0-0.4); Eosinophils Percent Auto 6.1 % (0-4); Hematocrit 44.1 % (42.0-52.0); Hemoglobin 14.3 g/dl (14.0-18.0); Imm Gran Abs Auto 0.02 X10*3/uL (0.00-0.03); Imm Gran Pct Auto 0.4 % (0.0-0.4); Lymphocytes Absolute Auto 1.9 X10*3/uL (1.2-4.9); Lymphocytes Percent Auto 36.4 % (20-40); Mean Corpuscular HGB Conc 32.4 g/dl (31.0-36.0); Mean Corpuscular Hemoglobin 29.1 pg (27.0-33.0); Mean Corpuscular Volume 89.6 fL (80.0-98.0); Mean Platelet Volume 12.7 fL (9.4-12.4); Monocytes Absolute Auto 0.6 X10*3/uL (0.1-1.2); Monocytes Percent Auto 10.4 % (2-11); Neutrophils Absolute Auto 2.4 x10*3/uL (2.0-8.3); Neutrophils Percent Auto 46.1 % (45-73); Platelet Count 187 X10*3/uL (160-400); Red Blood Count 4.92 X10*6/uL (4.60-5.80); White Blood Count 5.3 X10*3/uL (4.8-10.8)
[2024-08-11 09:52] LABS: Estimated Average Glucose 105 mg/dL; Hemoglobin A1c % 5.3 % (<6.0)
[2024-08-11 10:42] LABS: Alanine Aminotransferase 24 U/L (0-40); Albumin Level 4.3 g/dL (3.5-5.0); Alkaline Phosphatase 72 U/L (39-117); Anion Gap 11 (12-20); Aspartate Amino Transferase 24 U/L (5-37); Bilirubin Total 1.9 mg/dL (0.0-1.0); Blood Urea Nitrogen 17 mg/dL (9-16); C Reactive Protein 0.19 mg/dL (< or = 0.50); Calcium 9.7 mg/dL (8.4-10.2); Carbon Dioxide 32 mmol/L (22-29); Chloride 104 mmol/L (96-108); Cholesterol 163 mg/dL (<200); Estimated Glomerular Filt Rate > 60; Ferritin 157 ng/mL (20-250); Glucose Random 95 mg/dL (60-115); HDL Cholesterol 60 mg/dL (>40); Iron 128 mcg/dL (45-160); LDL Cholesterol Calculated 89 mg/dL (<100); Percent Iron Saturation 51 % (15-50); Potassium 4.5 mmol/L (3.3-5.1); Sodium 142 mmol/L (135-145); TSH reflex Free T4 0.37 uIU/mL (0.32-4.0); Total Iron Binding Capacity 253 mcg/dL (228-428); Total Protein 6.9 g/dL (6.5-8.0); Triglycerides 71 mg/dL (<150); Unsaturated Iron Binding 125 ug/dL; Vitamin D 25-OH Total 43.8 ng/mL (>30)
[2024-08-11 10:48] LABS: Folate 7.9 ng/mL (> or = 4.0); Vitamin B12 434 pg/mL (200-900)
[2024-08-11 11:49] LABS: Insulin 3 uU/mL (2-29)
[2024-08-15 03:38] LABS: Zinc 68 mcg/dL (60-130)
[2024-08-15 18:58] LABS: Vitamin A 72 mcg/dL (38-98)
[2024-08-19 14:48] LABS: Vitamin B1 13 nmol/L (8-30)
== END 2024-08-11 08:42 | disposition home or self-care (01) ==
LOC: HO.LAB 08:41
PROVIDERS: PCP Internal Medicine; Visit Provider Physician Assistant Surgical
DX: Z98.84 Bariatric surgery status (principal); Z13.1 Encounter for screening for diabetes mellitus; Z13.6 Encounter for screening for cardiovascular disorders
CPT/HCPCS: 36415; 80053; 80061; 82306; 82607; 82728; 82746; 83036; 83525; 83540; 84425; 84443; 84590; 84630; 85025; 86140

== ENCOUNTER 2024-09-06 13:10 | Outpatient (AMB) | payer OTHER, SELFPAY ==
--- NOTE | 2024-09-06 12:35 | MHC.OFFVISWM ---
VS Expanded 09/06/24 12:36 Height 6 ft Weight 177 lb 5 oz BMI 24.0 Intake Visit Reasons: TELEPHONE PO LSG 05/19/23 Allergies Penicillins Allergy (Mild, Verified 05/08/23 09:53) Rash Medication List - Last Reconciled 09/06/24 by TELLO Palmer multivitamin 1 tab PO DAILY vitamin A palmitate 10,000 units PO DAILY HPI Comments Details: This is a 39 yo male who is s/p LSG 05/19/2023. Presents for 15mo post op visit. Weight at last visit on 05/24/2024 was 176.8 pounds, weight today 177.5 with BMi 24. No complaints of nausea, emesis, abdominal pain or reflux, or constipation. Pt reports some tailbone pain due to weight loss. Lower energy the last few weeks but doesn't think it was related to weight loss. Present meal plan includes: 2 shakes- 1 scoop in one shake, 1/2 scoop in second shake- Iso 1 ZP bar 1 bag of pea crisps (12g) 4 forks protein (chicken, fish, beef, pork), 4 forks veg, 1 serving healthy fat half bar or pea crisps apples and grapes or chikis/cauli/tomato/avocado/peppers increased his fluid intake- water he notes he has started to experience some more cravings but usually knows how to manage them- makes healthier choices 1-2x week will have a glass of wine or piece of chocolate rarely will have 2 eggs Exercise routine includes: jogging or walking 3-4x/week, 3-8 miles each time and uses incline, for max 1 hour; on days he does not run, does plyometrics/strength training/body weight training, pushups/crunches [facility] Medical History Obesity Morbid obesity Surgical History History of eye surgery Hx of appendectomy Family History Mother Hypertension Father Hypertension Son No problems noted. Son Asthma Daughter Asthma Social History Household Members: Spouse Housing: House Are you a primary nurse wound care to a significant other at home: No Do you presently have visiting nurse or other home services: No Alcohol intake: current Alcohol intake frequency: holidays/special occasions only Patient Tobacco Use Status: Never used Tobacco service: No Telehealth Telehealth Telehealth Platform: Telephone Location of provider rendering services: practice address Location of patient: address on file Patient Identification confirmed using: Name, : Yes Telehealth method: voice only Patient verbally consented to treatment: Yes Patient verbally consented to billing insurance company: Yes Patient informed of any privacy concerns related to visit: Yes Minutes spent on Phone/Video with Pt.: 18 Assessment & Plan Assessment & Plan (1) S/P laparoscopic sleeve gastrectomy: Code(s): Z98.84 - Bariatric surgery status Category: Surgical Plan Discussed taking in protein or fruit/veg if he starts to feel hungry. He is doing well managing his weight, if it starts to increase he knows to tighten up his meal plan and exercise. Suggested glute strength training exercises to support pelvis and and potentially build muscle around tailbone to avoid pain. Can repeat labs if his fatigue persists. RTC 3mo.
[2024-09-06 12:36] VITALS: BMI 24.0
== END 2024-09-06 13:11 | disposition home or self-care (01) ==
LOC: HO.HBS 13:10
PROVIDERS: PCP Internal Medicine; Visit Provider Physician Assistant Surgical
DX: Z71.3 Dietary counseling and surveillance (principal); Z98.84 Bariatric surgery status
CPT/HCPCS: 98012

== ENCOUNTER → 2024-09-06 13:10 | Outpatient (BNVA) | payer OTHER, SELFPAY | PROVIDERS: PCP Internal Medicine; Visit Provider Physician Assistant Surgical | DX: Z98.84 Bariatric surgery status (principal) ==

== ENCOUNTER 2024-11-29 10:54 | Outpatient (AMB) | payer OTHER, SELFPAY ==
--- NOTE | 2024-11-29 10:54 | A.OFFVIS_ITS ---
VS Expanded 11/29/24 10:57 Height 6 ft Weight 173 lb BMI 23.5 Intake Visit Reasons: TELEPHONE PO LSG 05/19/23 Allergies Penicillins Allergy (Mild, Verified 05/08/23 09:53) Rash Medication List - Last Reconciled 11/29/24 by TELLO Palmer multivitamin 1 tab PO DAILY vitamin A palmitate 10,000 units PO DAILY HPI Comments Details: This?is a?39?yo M who is s/p LSG 05/19/2023. Presents for 18mo post op visit. Weight loss of 4.5lbs since last OV. No complaints of nausea, emesis, abdominal pain or reflux, or constipation. Has had a lot of work stress recently so has exercised more. Present meal plan includes: 2 shakes- 1 scoop in one shake, 1/2 scoop in second shake- Iso 1 ZP bar 1 bag of pea crisps (12g) 4 forks protein (chicken, fish, beef, pork), 4 forks veg, 1 serving healthy fat half bar or pea crisps apples and grapes or chikis/cauli/tomato/avocado/peppers increased his fluid intake- water he notes he has started to experience some more cravings but usually knows how to manage them- makes healthier choices, choosing fruits and veg, or string cheese will sometimes have cashews 1-2x week will have a glass of wine or piece of chocolate will make smoothies with n[place] yogurt or cottage cheese Exercise routine includes: jogging or walking 4x/week, 8-10 miles each time and uses incline, for max 1 hour; on days he does not run, does plyometrics/strength training/body weight training, pushups/crunches recently did 15 miles on a day he was particularly stressed [facility] Medical History Obesity Morbid obesity Surgical History History of eye surgery Hx of appendectomy Family History Mother Hypertension Father Hypertension Son No problems noted. Son Asthma Daughter Asthma Social History Household Members: Spouse Housing: House Are you a primary managed care liaison to a significant other at home: No Do you presently have visiting nurse or other home services: No Alcohol intake: current Alcohol intake frequency: holidays/special occasions only Patient Tobacco Use Status: Never used Tobacco service: No Telehealth Telehealth Telehealth Platform: Telephone Location of provider rendering services: practice address Location of patient: address on file Patient Identification confirmed using: Name, : Yes Telehealth method: voice only Patient verbally consented to treatment: Yes Patient verbally consented to billing insurance company: Yes Patient informed of any privacy concerns related to visit: Yes Minutes spent on Phone/Video with Pt.: 22 Assessment & Plan Assessment & Plan (1) S/P laparoscopic sleeve gastrectomy: Code(s): Z98.84 - Bariatric surgery status Category: Surgical Plan Pt continues to maintain a healthy weight, actually lost a few lbs despite not trying to; I think considering his level of activity he may need to increase his intake. Can incorporate additional healthy fats, cheese, can add a healthy carb to his meals. He will continue to track his weight weekly. He has made many positive changes, cooks at home often with healthy practices, does eat off plan sometimes but I think his level of activity can support this at this point. He has lost 150lbs since his first visit with us. RTC 6mo for 3yr visit.
[2024-11-29 10:57] VITALS: BMI 23.5
== END 2024-11-29 11:21 | disposition home or self-care (01) ==
LOC: HO.HBS 10:54
PROVIDERS: PCP Internal Medicine; Visit Provider Physician Assistant Surgical
DX: Z71.3 Dietary counseling and surveillance (principal); Z90.3 Acquired absence of stomach [part of]; Z98.84 Bariatric surgery status
CPT/HCPCS: 98013